=== PATIENT | female | born 1945 | race Caucasian/White ===

== ENCOUNTER → 2016-09-02 | Outpatient (CLI) | payer OTHER, MEDICARE ==
[2016-09-02 12:48] LABS: BASO % 0.7 %; BASO ABS # 0.05 K/uL (0-0.2); COMPLETE YES; EOS % 5.7 %; HEMATOCRIT 41.8 % (37-47); IG% 0.1 %; LYMPH % 34.2 %; MEAN CELL VOLUME 85.3 fL (80-100); MEAN CORPUSCULAR HEMOGLOBIN 28.4 pg (25-34); MEAN CORPUSCULAR HGB CONC 33.3 g/dl (32-36); MEAN PLATELET VOLUME 9.9 fL (7.4-10.4); MONO % 5.9 %; NEUT % 53.4 %; PLATELET COUNT 290 K/uL (130-400); WHITE BLOOD COUNT 7.31 K/uL (4.8-10.8)
[2016-09-02 13:36] LABS: ALT/SGPT 18 U/L (12-78); BLOOD UREA NITROGEN 19 mg/dl (7-18); BUN/CREATININE RATIO 38.8 (10-20); CALCIUM 9.4 mg/dl (8.5-10.1); CARBON DIOXIDE 31 mmol/L (21-32); CHLORIDE 104 mmol/L (98-107); CHOLESTEROL 224 mg/dl (0-200); CREATININE 0.48 mg/dl (0.60-1.20); GLUCOSE 90 mg/dl (70-99); POTASSIUM 3.6 mmol/L (3.5-5.1); SODIUM 140 mmol/L (136-145); TRIGLYCERIDES 122 mg/dl (0-150); VERY LOW DENSITY LIPOPROT CALC 24 mg/dl
[2016-09-02 13:45] LABS: ALB/GLOB RATIO 0.9 (0.9-2); ALKALINE PHOSPHATASE 130 U/L (45-117); AST/SGOT 17 U/L (15-37); CHOLESTEROL/HDL RATIO 4.4; HDL CHOLESTEROL 51 mg/dl; LDL CHOLESTEROL CALCULATED 149 mg/dl; TOTAL IRON BINDING CAPACITY 305 mcg/dl (250-450)
== END | disposition home or self-care (01) ==
LOC: C.LABPBG 08:42
PROVIDERS: ATTEND Internal Medicine
DX: I10 Essential (primary) hypertension (principal); J01.90 Acute sinusitis, unspecified

== ENCOUNTER → 2016-09-10 | Outpatient (CLI) | payer OTHER, MEDICARE ==
--- NOTE | 2016-09-10 11:37 | DIAGNOSTIC IMAGING REPORT ---
SOFT TISSUE ULTRASOUND OF THE RIGHT UPPER BACK CLINICAL HISTORY: Right shoulder mass. Possible lipoma COMPARISON STUDY: No previous studies for comparison. FINDINGS: No definite masses are visualized. There are 2 foci which are isoechoic to fat measuring 44 x 47 x 15 mm, and 41 x 45 x 12 mm. It is unclear whether these represent discrete lesions, or simply fat lobules. IMPRESSION: No definite masses are visualized ultrasonographically. Electronically signed by: Sukhwinder Oakes M.D. 09/10/2016 11:35 AM Dictated Date/Time: 09/10/2016 11:29 AM
== END | disposition home or self-care (01) ==
LOC: C.ULTR 11:05
PROVIDERS: ATTEND Internal Medicine
DX: D17.9 Benign lipomatous neoplasm, unspecified (principal)

== ENCOUNTER → 2017-01-30 | Outpatient (CLI) | payer OTHER, MEDICARE ==
--- NOTE | 2017-01-30 11:38 | DIAGNOSTIC IMAGING REPORT ---
KUB CLINICAL HISTORY: Left costovertebral angle tenderness with the urinary signs. Evaluate for stone. COMPARISON STUDY: CT of the abdomen and pelvis June 02, 2014. FINDINGS: Moderate levoscoliosis of the lumbar spine is noted. No urinary calculi are identified. Bowel gas pattern is normal. IMPRESSION: 1. No urinary calculi identified. 2. No bowel obstruction. Electronically signed by: Chaitanya Rutledge M.D. 01/30/2017 11:37 AM Dictated Date/Time: 01/30/2017 11:33 AM
== END | disposition home or self-care (01) ==
LOC: C.RAD1850 11:21
PROVIDERS: ATTEND Physician Assistant
DX: R39.9 Unspecified symptoms and signs involving the genitourinary system (principal)

== ENCOUNTER → 2017-01-30 | Outpatient (CLI) | payer OTHER, MEDICARE | END | disposition home or self-care (01) | LOC: C.LABSPEC 12:12 | PROVIDERS: ATTEND Physician Assistant | DX: R39.9 Unspecified symptoms and signs involving the genitourinary system (principal) ==

== ENCOUNTER → 2017-02-04 | Outpatient (CLI) | payer OTHER, MEDICARE ==
--- NOTE | 2017-02-04 10:47 | DIAGNOSTIC IMAGING REPORT ---
(RENAL)RETROPERITON COMP CLINICAL HISTORY: 71 years-old Female presenting with left renal calculi, urinary symptoms. TECHNIQUE: Real-time grayscale and limited color Doppler ultrasound imaging of the kidneys and bladder was performed. COMPARISON: CT from 06/02/2014. FINDINGS: Right kidney: Normal echogenicity. Right kidney measures 10.8 cm. No hydronephrosis. No convincing evidence of calculus or mass. Normal perfusion. Left kidney: Normal echogenicity. Left kidney measures 10.9 cm. No hydronephrosis. No convincing evidence of calculus or mass. Normal perfusion. Bladder: Incompletely distended, however, bilateral ureteral jets observed. Other: None. IMPRESSION: 1. Normal renal ultrasound. No obstruction. Electronically signed by: Walker Steiner M.D. 02/04/2017 10:45 AM Dictated Date/Time: 02/04/2017 10:44 AM
--- NOTE | 2017-02-04 10:50 | DIAGNOSTIC IMAGING REPORT ---
PELVIC COMPLETE NON OB CLINICAL HISTORY: 71 years-old Female presenting with urinary symptoms, concern for left renal calculi, uterine fibroids, postmenopausal, no abnormal bleeding or history of surgery. TECHNIQUE: Real-time grayscale and color and spectral Doppler ultrasound imaging of the pelvis was performed using a transabdominal probe. COMPARISON: CT from 06/02/2014. FINDINGS: The examination is limited by inability to obtain transvaginal imaging. Uterus: Poorly visualized. At least 2 hypoechoic masses noted measuring 6.2 x 5.9 x 5.7 cm and 3.8 x 3.7 x 2.6 cm along the left uterine body, possibly uterine fibroids. Anteverted. The uterus measures 5.0 x 6.8 x 5.1 cm. Endometrium not well evaluated. Right adnexa: Not visualized. Left adnexa: Not visualized. Other: No free fluid. IMPRESSION: Overall limited examination secondary to the inability to obtain transvaginal imaging. Suspected uterine fibroids. Electronically signed by: Walker Steiner M.D. 02/04/2017 10:48 AM Dictated Date/Time: 02/04/2017 10:45 AM
== END | disposition home or self-care (01) ==
LOC: C.ULTR 09:39
PROVIDERS: ATTEND Physician Assistant
DX: R39.9 Unspecified symptoms and signs involving the genitourinary system (principal); D25.9 Leiomyoma of uterus, unspecified

== ENCOUNTER → 2017-02-18 | Outpatient (CLI) | payer OTHER, MEDICARE ==
--- NOTE | 2017-02-18 15:08 | DIAGNOSTIC IMAGING REPORT ---
L-SPINE MIN 4 VIEWS ROUTINE CLINICAL HISTORY: Low back pain. COMPARISON: None FINDINGS: Moderate levoscoliosis of the lumbar spine is noted. Vertebral body heights are maintained. There is no acute fracture within the lumbar spine. No suspicious osseous lesion is present. There is mild multilevel disc space narrowing and osteophytosis with moderate multilevel facet arthrosis. IMPRESSION: 1. No lumbar spine fracture. 2. Moderate levoscoliosis of the lumbar spine. 3. Mild multilevel degenerative disc disease and moderate multilevel facet arthrosis of the lumbar spine. Electronically signed by: Chaitanya Rutledge M.D. 02/18/2017 3:06 PM Dictated Date/Time: 02/18/2017 3:05 PM
== END | disposition home or self-care (01) ==
LOC: C.RAD1850 14:35
PROVIDERS: ATTEND Internal Medicine
DX: M54.5 Low back pain (principal); M41.9 Scoliosis, unspecified

== ENCOUNTER → 2017-03-20 | Outpatient (CLI) | payer OTHER, MEDICARE ==
--- NOTE | 2017-03-20 11:45 | DIAGNOSTIC IMAGING REPORT ---
EXAMINATION: PELVIC ULTRASOUND CLINICAL HISTORY: D25.9 Uterus [id number] Pelvic pain in [id number] COMPARISON STUDY: 02/04/2017 FINDINGS: The examination was quite limited from a technical standpoint, secondary to shadowing from the patient's fibroids. The uterus was difficult to measure. The endometrial stripe was not visualized. There is a left-sided fibroid measuring 68 x 55 x 57 mm. The right ovary measured 24 x 19 x 19 mm. There is a 21 mm follicle.. The left ovary was not visualized There was no evidence of pathologic free pelvic fluid. IMPRESSION: 1. Very limited study from a technical standpoint. The uterus was difficult to visualize due to shadowing from the patient's fibroid. A 68 mm left-sided fibroid was visualized. The additional fibroids previously described were not visualized the current study. Electronically signed by: Sukhwinder Oakes M.D. 03/20/2017 11:44 AM Dictated Date/Time: 03/20/2017 11:28 AM
== END | disposition home or self-care (01) ==
LOC: C.ULTR 10:26
PROVIDERS: ATTEND Internal Medicine
DX: D25.9 Leiomyoma of uterus, unspecified (principal); R10.2 Pelvic and perineal pain

== ENCOUNTER → 2017-04-07 | Outpatient (CLI) | payer OTHER, MEDICARE ==
--- NOTE | 2017-04-07 16:56 | DIAGNOSTIC IMAGING REPORT ---
CHEST 2 VIEWS ROUTINE CLINICAL HISTORY: Preoperative evaluation. COMPARISON STUDY: No previous studies for comparison. FINDINGS: No pneumothorax or pleural effusion is present. There is no consolidation to suggest pneumonia. Pulmonary vascularity is normal. Mild cardiomegaly is noted. Incidental note is made of S-shaped scoliosis of the thoracolumbar spine. IMPRESSION: 1. No acute cardiopulmonary findings. 2. Mild cardiomegaly. Electronically signed by: Chaitanya Rutledge M.D. 04/07/2017 4:55 PM Dictated Date/Time: 04/07/2017 4:54 PM
[2017-04-07 17:58] LABS: BASO % 0.6 %; BASO ABS # 0.06 K/uL (0-0.2); COMPLETE YES; EOS % 5.4 %; HEMATOCRIT 42.8 % (37-47); IG% 0.1 %; LYMPH % 37.3 %; LYMPH ABS # 3.65 K/uL (1.2-3.4); MEAN CELL VOLUME 86.1 fL (80-100); MEAN CORPUSCULAR HGB CONC 33.6 g/dl (32-36); MONO % 6.3 %; NEUT % 50.3 %; PLATELET COUNT 290 K/uL (130-400); RED BLOOD COUNT 4.97 M/uL (4.2-5.4); WHITE BLOOD COUNT 9.79 K/uL (4.8-10.8)
[2017-04-07 18:05] LABS: INR 0.9 (0.9-1.1); PROTHROMBIN TIME (PATIENT) 9.8 SECONDS (9.0-12.0)
[2017-04-07 18:16] LABS: BLOOD UREA NITROGEN 15 mg/dl (7-18); BUN/CREATININE RATIO 32.1 (10-20); CALCIUM 9.6 mg/dl (8.5-10.1); CARBON DIOXIDE 29 mmol/L (21-32); CHLORIDE 104 mmol/L (98-107); CREATININE 0.47 mg/dl (0.60-1.20); GLUCOSE 78 mg/dl (70-99); POTASSIUM 3.7 mmol/L (3.5-5.1); SODIUM 139 mmol/L (136-145)
[2017-04-07 18:19] LABS: ALB/GLOB RATIO 0.9 (0.9-2); ALKALINE PHOSPHATASE 152 U/L (45-117); ALT/SGPT 19 U/L (12-78); AST/SGOT 15 U/L (15-37)
== END | disposition home or self-care (01) ==
LOC: C.RAD1850 16:25
PROVIDERS: ATTEND Internal Medicine
DX: Z01.818 Encounter for other preprocedural examination (principal); I51.7 Cardiomegaly

== ENCOUNTER → 2017-10-09 | Outpatient (CLI) | payer OTHER ==
[2017-10-09 13:47] LABS: BASO % 0.6 %; BASO ABS # 0.04 K/uL (0-0.2); EOS % 4.9 %; EOS ABS # 0.34 K/uL (0-0.5); IG# 0.01 K/uL (0.00-0.02); LYMPH % 36.8 %; LYMPH ABS # 2.53 K/uL (1.2-3.4); MEAN CELL VOLUME 87.3 fL (80-100); MEAN CORPUSCULAR HEMOGLOBIN 29.1 pg (25-34); MEAN CORPUSCULAR HGB CONC 33.3 g/dl (32-36); MEAN PLATELET VOLUME 9.8 fL (7.4-10.4); MONO % 7.3 %; NEUT % 50.3 %; NEUT ABS # 3.46 K/uL (1.4-6.5); PLATELET COUNT 293 K/uL (130-400); RED CELL DISTRIBUTION WIDTH CV 13.9 % (11.5-14.5); RED CELL DISTRIBUTION WIDTH SD 44.8 fL (36.4-46.3); WHITE BLOOD COUNT 6.88 K/uL (4.8-10.8)
[2017-10-09 14:17] LABS: BLOOD UREA NITROGEN 21 mg/dl (7-18); CALCIUM 9.2 mg/dl (8.5-10.1); CARBON DIOXIDE 29 mmol/L (21-32); CREATININE 0.53 mg/dl (0.60-1.20); GLUCOSE 91 mg/dl (70-99); POTASSIUM 3.5 mmol/L (3.5-5.1); SODIUM 139 mmol/L (136-145)
[2017-10-09 14:22] LABS: CHOLESTEROL 244 mg/dl (0-200); LDL CHOLESTEROL CALCULATED 170 mg/dl; TRANSFERRIN 269 mg/dl (200-360)
== END | disposition home or self-care (01) ==
LOC: C.LABPBG 08:26
PROVIDERS: ATTEND Internal Medicine
DX: G25.81 Restless legs syndrome (principal); I10 Essential (primary) hypertension; M79.604 Pain in right leg

== ENCOUNTER 2022-06-19 16:33 | Inpatient (IN) ==
--- NOTE | 2022-06-19 16:54 | Emergency Department Note ---
Impression & Plan ST elevation (STEMI) myocardial infarction ED Provider Note CHIEF COMPLAINT: Abnl EKG HISTORY OF PRESENT ILLNESS: This 76 yo female patient presents to the emergency department with complaints of chest tightness and exertional shortness of breath. Patient was in the cardiology office today and noted to have an abnormal EKG concerning for ST elevation AL. Patient states she has been told by her primary care physician in the past that she had a previous heart attack several years ago. Patient states over the last several weeks she has noticed increased difficulty with exercise and will develop chest tightness. It resolves over the course of about 10 minutes with rest. She denies any radiation of the discomfort, she denies getting diaphoretic or nauseated. Patient has had no recent fevers, cough. REVIEW OF SYSTEMS: A review of systems was performed with positives and pertine nt negatives listed in the history of present illness. 10 systems were reviewed and are otherwise negative. ALLERGIES: see below MEDICATIONS: see below PMH: see below SOCIAL HISTORY: see below DDx: Cardiac ischemia, aortic dissection, pulmonary embolism, pneumothorax, pneumonia, pericarditis, myocarditis, esophageal rupture, GERD, cholecystitis, pancreatitis, musculoskeletal, as well as other pathologies. PHYSICAL EXAM: Vital signs reviewed. Hypertensive General: Well-appearing 76 yo female, in some discomfort, anxious HEENT: No scleral icterus, PERRLA, neck supple. Atraumatic. Cardiovascular: Tachycardic and regular Pulmonary: Clear to auscultation bilaterally, normal work of breathing. Abdomen: Soft, nontender, nondistended, positive bowel sounds. Musculoskeletal: Atraumatic, no peripheral edema. Neurologic: Patient awake alert and oriented x 3, speech is clear Skin: Warm, dry, no rash EMERGENCY DEPARTMENT COURSE/MDM: This patient was evaluated nearly simultaneously with Dr. Ward of interventional cardiology at the bedside. A heart alert was called. The patient been sent from the cardiology office with concerns over an abnormal EKG. Patient was examined and a repeat EKG was performed. EKG findings seem to be worsening. Patient confirms symptoms consistent with exertional angina. She states she has some tightness and shortness of breath at this time. She was given 243 mg of aspirin as she had taken 1 baby aspirin earlier today. Patient was also given 1 mg of Ativan for her anxiety. She did receive sublingual nitroglycerin. We did discuss the need for cardiac catheterization. Dr. Ward was able to discuss the risks and benefits with her and her at the bedside. They agreed and proceeded. MONITORING: An order for cardiac monitoring was placed and the patient is noted to be in a sinus tachycardia 114 beats per minute. RADIOLOGY: See below EKG: Sinus tachycardia with PACs at 103 bpm. Left atrial enlargement. ST elevation noted in V1 and aVR with reciprocal change, ST depression laterally. Concerning for ST elevation AL. DISPOSITION: Admission Past Med/Surg History Medical History Arthritis Cervical disc disease Chronic rhinitis Dyslipidemia Hypertension Mood change On statin therapy Pain of left calf RLS (restless legs syndrome) Scoliosis Vitamin B12 deficiency Surgical History H/O: hysterectomy (2017) S/P appendectomy S/P dilatation and curettage S/P tubal ligation Family History Father Myocardial infarction Hypertension Mother Diabetes Cardiomegaly Kidney stone Aunt Osteoporosis Thyroid disease Sister Kidney stone Denies family history of Ovarian cancer Prostate cancer Breast cancer Colorectal cancer Social History Smoking Status: Former smoker Age Started Using Tobacco: 20; Age Quit Using Tobacco: 51; Cigarettes Per Day: 7 cigarettes daily; Second Hand Exposure: No; Hx Alcohol Use: No Hx Substance Use: No Preferred Language: Bengali Communication Ability: Effective Visual Impairment: No Limitations Hearing Ability: Normal Field Recorder Required: No Beliefs That Will Affect Care: None marital status: / Current Living Situation: Significant Other current occupational status: retired Feels Safe at Home: Yes caffeine: No Dental Care, Regularly: Yes Physical Activity Frequency: 1-2 Times per Week Physical Activity Frequency Comment: walking Seatbelt Use: always Sunscreen Use: Yes Allergies Allergies Allergy/AdvReac Type Severity Reaction Status Date / Time olmesartan [From Benicar] AdvReac Intermediate Dizziness Verified 06/19/22 17:07 enalapril AdvReac Unknown Unknown Verified 06/19/22 17:07 hydrochlorothiazide AdvReac Unknown Unknown Verified 06/19/22 17:07 Home Meds Home Medications Medication Instructions Recorded Confirmed aspirin 81 mg tablet,delayed 81 mg PO DAILY 03/01/22 06/19/22 release losartan 50 mg tablet 50 mg PO BID 06/19/22 06/19/22 Previous Rx's Medication Instructions Recorded rosuvastatin 10 mg tablet 10 mg PO DAILY #90 tabs 03/01/22 Results & Data (ED) Vital Signs Vital Signs - 24 hr 06/19/22 16:36 06/19/22 16:58 06/19/22 16:58 Temperature 36.7 C Temperature Source Temporal Artery Scan Pulse Rate 114 H Pulse Rate [Apical] 119 H Respiratory Rate 16 36 H Respiratory Effort / Characteristics Non-Labored Spontaneous Respiratory Depth Normal Respiratory Pattern Regular Blood Pressure 210/119 H Blood Pressure [Left Arm] 178/126 H Blood Pressure Mean 149 Blood Pressure Mean [Left Arm] 143 Blood Pressure Position Sitting Pulse Oximetry 99 99 Oxygen Delivery Method Room Air Room Air Room Air Sepsis Recent Fever Within 48 Hours No Sepsis New/Unexplained Change in Mental Status No Sepsis Action Taken by Nursing No Action Required 06/19/22 17:00 06/19/22 17:08 06/19/22 17:09 Temperature Temperature Source Pulse Rate Pulse Rate [Apical] 121 H 112 H Respiratory Rate 25 H 18 Respiratory Effort / Characteristics Respiratory Depth Respiratory Pattern Blood Pressure Blood Pressure [Left Arm] 197/123 H 180/109 H Blood Pressure Mean Blood Pressure Mean [Left Arm] 147 132 Blood Pressure Position Pulse Oximetry 99 Oxygen Delivery Method Room Air Room Air Sepsis Recent Fever Within 48 Hours Sepsis New/Unexplained Change in Mental Status Sepsis Action Taken by Nursing 06/19/22 17:13 Temperature Temperature Source Pulse Rate Pulse Rate [Apical] Respiratory Rate Respiratory Effort / Characteristics Respiratory Depth Respiratory Pattern Blood Pressure Blood Pressure [Left Arm] Blood Pressure Mean Blood Pressure Mean [Left Arm] Blood Pressure Position Pulse Oximetry Oxygen Delivery Method Room Air Sepsis Recent Fever Within 48 Hours Sepsis New/Unexplained Change in Mental Status Sepsis Action Taken by Skilled Nursing Medications Current Medication List: was personally reviewed by me Laboratory Data Attestation: I reviewed the patient's lab results. Result diagrams: 06/19/22 16:54 06/19/22 19:31 Lab Results 06/19/22 06/19/22 06/19/22 Range/Units 16:54 16:54 16:54 WBC 12.71 H (4.8-10.8) K/ul RBC 5.15 (3.93-5.22) M/uL Hgb 14.5 (12.0-16.0) g/dl Hct 44.2 (34.1-44.9) % MCV 85.8 (80.0-100.0) fL MCH 28.2 (25.0-34.0) pg MCHC 32.8 (32.0-36.0) g/dL RDW Std Deviation 42.8 (36.4-46.3) fL RDW Coeff of Fouzia 13.6 (11.5-14.5) % Plt Count 369 (130-400) K/uL MPV 10.7 (9.4-12.3) fL Immature Gran % (Auto) 0.2 % Neut % (Auto) 72.6 % Lymph % (Auto) 19.9 % Briscoe % (Auto) 6.2 % Eos % (Auto) 0.5 % Baso % (Auto) 0.6 % Neut # (Auto) 9.23 H (1.4-6.5) K/uL Lymph # (Auto) 2.53 (1.2-3.4) K/uL Briscoe # (Auto) 0.79 (0.24-0.82) K/uL Eos # (Auto) 0.06 (0-0.50) K/uL Baso # (Auto) 0.07 (0-0.2) K/uL Immature Gran # (Auto) 0.03 H (0.00-0.02) K/uL PT Cancelled INR Cancelled APTT Cancelled PTT Ratio Cancelled Activ Coag Time Kaolin (94-140) SECONDS Sodium TNP Potassium TNP Chloride 103 (98-107) mmol/L Carbon Dioxide 25 (21-32) mmol/L Anion Gap TNP BUN 18 (6-23) mg/dl Creatinine 0.53 L (0.6-1.2) mg/dl Est Cr Clr Drug Dosing 99.8 ml/min Est GFR ( Amer) 108.4 ml/min Est GFR (Non-Af Amer) 93.5 ml/min BUN/Creatinine Ratio 34.0 H (10-20) Glucose 117 H (70-99(Fasting)) mg/dl Calcium 10.0 (8.5-10.1) mg/dl Total Bilirubin 0.6 (0.2-1.0) mg/dl AST TNP ALT 18 (7-52) U/L Alkaline Phosphatase 123 H (34-104) U/L Troponin I High Sens 415.0 H* (0-14) pg/ml Total Protein 7.9 (6.0-8.3) gm/dl Albumin 4.3 (3.4-5.0) gm/dl Globulin 3.6 (2.5-4.0) gm/dl Albumin/Globulin Ratio 1.2 (0.9-2) SARS-CoV-2, RNA, NAAT (NEGATIVE) 06/19/22 06/19/22 06/19/22 Range/Units 17:02 17:40 17:58 WBC (4.8-10.8) K/ul RBC (3.93-5.22) M/uL Hgb (12.0-16.0) g/dl Hct (34.1-44.9) % MCV (80.0-100.0) fL MCH (25.0-34.0) pg MCHC (32.0-36.0) g/dL RDW Std Deviation (36.4-46.3) fL RDW Coeff of Fouzia (11.5-14.5) % Plt Count (130-400) K/uL MPV (9.4-12.3) fL Immature Gran % (Auto) % Neut % (Auto) % Lymph % (Auto) % Briscoe % (Auto) % Eos % (Auto) % Baso % (Auto) % Neut # (Auto) (1.4-6.5) K/uL Lymph # (Auto) (1.2-3.4) K/uL Briscoe # (Auto) (0.24-0.82) K/uL Eos # (Auto) (0-0.50) K/uL Baso # (Auto) (0-0.2) K/uL Immature Gran # (Auto) (0.00-0.02) K/uL PT INR APTT PTT Ratio Activ Coag Time Kaolin 329 H 257 H (94-140) SECONDS Sodium Potassium Chloride (98-107) mmol/L Carbon Dioxide (21-32) mmol/L Anion Gap BUN (6-23) mg/dl Creatinine (0.6-1.2) mg/dl Est Cr Clr Drug Dosing ml/min Est GFR ( Amer) ml/min Est GFR (Non-Af Amer) ml/min BUN/Creatinine Ratio (10-20) Glucose (70-99(Fasting)) mg/dl Calcium (8.5-10.1) mg/dl Total Bilirubin (0.2-1.0) mg/dl AST ALT (7-52) U/L Alkaline Phosphatase (34-104) U/L Troponin I High Sens (0-14) pg/ml Total Protein (6.0-8.3) gm/dl Albumin (3.4-5.0) gm/dl Globulin (2.5-4.0) gm/dl Albumin/Globulin Ratio (0.9-2) SARS-CoV-2, RNA, NAAT NEGATIVE (NEGATIVE) Administered Medications Famotidine (Famotidine 20 Mg Tab) 20 mg PO BID [facility] Stop: 07/19/22 20:59 Last Admin: 06/19/22 20:09 Dose: 20 mg Documented By: LORENA Sodium Chloride (Nss 1000ml) 1,000 mls @ 75 mls/hr IV .[id number] [facility] Stop: 07/19/22 18:44 Last Admin: 06/19/22 19:21 Dose: 75 mls/hr Documented By: LORENA Metoprolol Tartrate (Metoprolol Tartrate 25 Mg Tab) 25 mg PO BID [facility] Stop: 07/19/22 20:59 Last Admin: 06/19/22 20:08 Dose: 25 mg Documented By: LORENA Madrigal (Icu Protocol For Hyperglycemia) 1 each N/A ACHS LISET Stop: 06/21/22 20:59 Last Admin: 06/19/22 20:25 Dose: 1 each Documented By: LORENA Madrigal (Icu Protocol For Hyperglycemia) 1 each N/A ACHS LISET Stop: 06/21/22 20:59 Last Admin: 06/19/22 20:25 Dose: 1 each Documented By: LORENA Discontinued Medications Aspirin (Aspirin Chew 324 Mg) 243 mg PO NOW STA Stop: 06/19/22 16:58 Last Admin: 06/19/22 17:06 Dose: 243 mg Documented By: ED Aspirin (Aspirin 81 Mg Chew) Confirm Administered Dose 243 mg .ROUTE .STK-MED ONE Stop: 06/19/22 16:59 Last Admin: 06/19/22 17:06 Dose: Not Given Documented By: ED Fentanyl Citrate (Fentanyl Citrate 100 Mcg/2 Ml Vial) Confirm Administered Dose 100 mcg .ROUTE .STK-MED ONE Stop: 06/19/22 17:00 Last Increment: 06/19/22 18:35 Dose: 25 mcg Documented By: RL Heparin Sodium (Porcine) (Heparin (Porcine) 1000 Unit/Ml 10 Ml (Heat And Frost Insulator Helper Use Only)) Confirm Administered Dose 10,000 units .ROUTE .STK-MED ONE Stop: 06/19/22 17:00 Last Admin: 06/19/22 18:36 Dose: 8,000 units Documented By: RL Heparin Sodium (Porcine) (Heparin (Porcine) 1000 Unit/Ml 10 Ml (Heat And Frost Insulator Helper Use Only)) Confirm Administered Dose 10,000 units .ROUTE .STK-MED ONE Stop: 06/19/22 18:03 Last Admin: 06/19/22 19:13 Dose: Not Given Documented By: LORENA Heparin Sodium (Porcine) (Heparin (Porcine) 1000 Unit/Ml 10 Ml (Heat And Frost Insulator Helper Use Only)) Confirm Administered Dose 10,000 units .ROUTE .STK-MED ONE Stop: 06/19/22 18:31 Last Admin: 06/19/22 19:13 Dose: Not Given Documented By: LORENA Heparin Sodium/Sodium Chloride (Heparin In Nss Infusion 1000 Unit/500 Ml (2 U/Ml) Bag) Confirm Administered Dose 3,000 units IV .STK-MED ONE Stop: 06/19/22 17:00 Last Admin: 06/19/22 19:12 Dose: Not Given Documented By: LORENA Hydralazine HCl (Hydralazine Hcl 20 Mg/Ml Vial) Confirm Administered Dose 20 mg .ROUTE .STK-MED ONE Stop: 06/19/22 21:31 Last Admin: 06/19/22 21:36 Dose: Not Given Documented By: LORENA Lorazepam (Lorazepam 2 Mg/1 Ml Vial) 1 mg IV NOW STA Stop: 06/19/22 17:00 Last Admin: 06/19/22 17:06 Dose: 1 mg Documented By: ED Lorazepam (Lorazepam 2 Mg/1 Ml Vial) Confirm Administered Dose 2 mg .ROUTE .STK- MED ONE Stop: 06/19/22 17:01 Last Admin: 06/19/22 17:07 Dose: Not Given Documented By: ED Losartan Potassium (Losartan Potassium 50 Mg Tab) 50 mg PO ONCE ONE Stop: 06/19/22 21:14 Last Admin: 06/19/22 21:16 Dose: Not Given Documented By: LORENA Losartan Potassium (Losartan Potassium 25 Mg Tab) 25 mg PO ONCE ONE Stop: 06/19/22 21:31 Last Admin: 06/19/22 21:33 Dose: 25 mg Documented By: LORENA Midazolam HCl (Midazolam Hcl 1 Mg/Ml 2ml Vial) Confirm Administered Dose 2 mg .ROUTE .STK-MED ONE Stop: 06/19/22 17:00 Last Increment: 06/19/22 18:35 Dose: 1 mg Documented By: RL Nicardipine HCl (Nicardipine Hcl Inj 2.5 Mg/Ml 10 Ml Amp) Confirm Administered Dose 25 mg .ROUTE .STK-MED ONE Stop: 06/19/22 17:00 Last Admin: 06/19/22 19:13 Dose: Not Given Documented By: LORENA Nitroglycerin (Nitroglycerin Sl 0.4 Mg/Tab Tab) Confirm Administered Dose 0.4 mg .ROUTE .STK-MED ONE Stop: 06/19/22 16:59 Last Admin: 06/19/22 17:06 Dose: 0.4 mg Documented By: ED Nitroglycerin/Dextrose (Nitroglycerin/D5w 100mcg/Ml 20ml Syr) Confirm Administered Dose 2,000 mcg .ROUTE .STK-MED ONE Stop: 06/19/22 17:01 Last Admin: 06/19/22 19:13 Dose: Not Given Documented By: LORENA Ticagrelor (Ticagrelor 90 Mg Tab) Confirm Administered Dose 180 mg .ROUTE .STK- MED ONE Stop: 06/19/22 18:23 Last Admin: 06/19/22 18:36 Dose: 180 mg Documented By: RL Imaging Data Radiologist's Impression: Chest X-Ray 06/19/22 16:42 SINGLE VIEW CHEST CLINICAL HISTORY: Atypical chest pain FINDINGS: An AP, portable, upright chest radiograph is compared to study dated 04/07/2017. The heart is enlarged noting atherosclerotic calcification of the thoracic aorta. There is pulmonary vascular congestion with evidence of interstitial edema. Atelectasis seen at the lung bases. No large pleural effusion or pneumothorax is seen. The skeletal structures are osteopenic. The bony thorax is grossly intact. Degenerative change and mild scoliosis is noted in the thoracic spine. IMPRESSION: Cardiomegaly with evidence of congestive failure and mild pulmonary edema. ACT 112: Negative or not required by law. Electronically signed by: Cristobal Veliz M.D. 06/19/2022 5:24 PM Blood Pressure Blood Pressure Findings: Elevated blood pressure Blood Pressure Disposition: further management by hospitalist Discharge Plan Visit Data Chief Complaint: Arrhythmia/Palpitations Stated Complaint: REFERRED BY DOCTOR, HEART PALPITATIONS ED Provider: Rabia Murguia Discharge Problem: ST elevation (STEMI) myocardial infarction Patient Disposition: Admitted As Inpatient Discharge Instructions Interventions: ED Discharge Assessment Last Done: 06/19/22 17:13 : ST elevation (STEMI) myocardial infarction Qualifiers: Involved coronary artery: LAD coronary artery Qualified Code(s): I21.02 - ST elevation (STEMI) myocardial infarction involving left anterior descending coronary artery
[2022-06-19] MEDS ORDERED: ASPIRIN CHEW 324 MG PO STA (16:57)
[2022-06-19] MEDS ORDERED: NITROGLYCERIN SL 0.4 MG/TAB TAB ONE (16:58)
[2022-06-19] MEDS ORDERED: ASPIRIN 81 MG CHEW ONE (16:58)
[2022-06-19] MEDS ORDERED: LORazepam 2 MG/1 ML VIAL IV STA (16:59)
[2022-06-19] MEDS ORDERED: HEPARIN (PORCINE) 1000 UNIT/ML 10 ML (CATH LAB USE ONLY) ONE ×3 (16:59→18:30)
[2022-06-19] MEDS ORDERED: niCARdipine HCL INJ 2.5 MG/ML 10 ML AMP ONE (16:59)
[2022-06-19] MEDS ORDERED: MIDAZOLAM HCL 1 MG/ML 2ML VIAL ONE (16:59)
[2022-06-19] MEDS ORDERED: fentaNYL citrate 100 MCG/2 ML VIAL ONE (16:59)
[2022-06-19] MEDS ORDERED: NITROGLYCERIN/D5W 100MCG/ML 20ML SYR ONE (17:00)
[2022-06-19] MEDS ORDERED: LORazepam 2 MG/1 ML VIAL ONE (17:00)
[2022-06-19 17:14] LABS: Basophils # (auto) 0.07 K/uL (0-0.2); Basophils % (auto) 0.6 %; Eosinophils # (auto) 0.06 K/uL (0-0.50); Eosinophils % (auto) 0.5 %; Hematocrit (blood only) 44.2 % (34.1-44.9); Hemoglobin 14.5 g/dl (12.0-16.0); Immature Granulocytes # (auto) 0.03 K/uL (0.00-0.02); Immature Granulocytes % (auto) 0.2 %; Lymphocytes # (auto) 2.53 K/uL (1.2-3.4); Lymphocytes % (auto) 19.9 %; Mean Corpuscular Hemoglobin 28.2 pg (25.0-34.0); Mean Corpuscular Hgb Conc 32.8 g/dL (32.0-36.0); Mean Corpuscular Volume 85.8 fL (80.0-100.0); Mean Platelet Volume 10.7 fL (9.4-12.3); Monocytes # (auto) 0.79 K/uL (0.24-0.82); Monocytes % (auto) 6.2 %; Neutrophils # (auto) 9.23 K/uL (1.4-6.5); Neutrophils % (auto) 72.6 %; Platelet Count 369 K/uL (130-400); RDW Coefficient of Variation 13.6 % (11.5-14.5); RDW Standard Deviation 42.8 fL (36.4-46.3); Red Blood Count 5.15 M/uL (3.93-5.22); White Blood Count 12.71 K/ul (4.8-10.8)
--- NOTE | 2022-06-19 17:23 | History & Physical Report ---
Date of Service June 19, 2022 Assessment & Plan (1) CAD (coronary artery disease): Plan: Acute coronary syndrome with ST elevation seen in avr and V1 with st depression I,II,III avl and avf pt with aspirin loading heparin, nicardipine for hypertensive urgency on presentation Patient had 2 stents placed in LAD 1 in the RCA she is in the ICU for recovery. She will be on high intensity statin by increasing her rosuvastatin to 20 should be on Brilinta and aspirin. Her blood pressure be controlled with continuation of her ARB and likely addition of beta-nicolette per cardiology's discretion (2) Hyperglycemia: Plan: this is by the record glucose is reasonable and A1c 5.9 will not use insulin ss unless has recurrent high readings (3) Dyslipidemia: Plan: lipids in the past have been reasonable while on rosuvastatin, dose will be increased to high intensity (4) Hypertension: Plan: pt on losartan but has a arb allergy to omlesartan, apparently tolerating losartan well (5) RLS (restless legs syndrome): Plan: Patient currently on no treatment for this History of Present Illness Primary Care Provider: Neeru Schaffer MD Patient has been stuttering cardiac symptoms for some time as an outpatient presented to an outpatient cardiology office around 4 PM with complaints of palpitations and chest discomfort. EKG in the office was concerning for acute coronary syndrome. She was sent immediately to the emergency department patient presents as a heart alert with inferior lateral ST elevation reciprocal depression. Patient was at her cardiology office this morning with exertional chest pain and abnormal EKG during the office visit. She was subsequently referred to the emergency department where EKG confirms the concern for acute coronary syndrome and heart alert was called that the patient taken emergently to the [facility]. Where she had 2 LAD stents placed in RCA stent placed and likely will need to come back for additional stenting of her coronary artery disease. Patient has risk factors of tobacco abuse hypertension and dyslipidemia, hyperglycemia without a formal diagnosis of diabetes Patient was seen postprocedure in the ICU she is in stable condition she has a T band in her right wrist which is intact with good sensation distally she is not with any additional chest discomfort shortness of breath or palpitations at this time Allergies Allergy/AdvReac Type Severity Reaction Status Date / Time olmesartan [From Benicar] AdvReac Intermediate Dizziness Verified 06/19/22 17:07 enalapril AdvReac Unknown Unknown Verified 06/19/22 17:07 hydrochlorothiazide AdvReac Unknown Unknown Verified 06/19/22 17:07 Home Medications Medication Instructions Recorded Confirmed Type aspirin 81 mg tablet,delayed 81 mg PO DAILY 03/01/22 06/19/22 History release rosuvastatin 10 mg tablet 10 mg PO DAILY #90 tabs 03/01/22 06/19/22 Rx losartan 50 mg tablet 50 mg PO BID 06/19/22 06/19/22 History Past Med/Surg History Medical History (Updated 03/01/22 @ 14:08 by Darrell Bhat MD) Arthritis Cervical disc disease Chronic rhinitis Dyslipidemia Hypertension Mood change On statin therapy Pain of left calf RLS (restless legs syndrome) Scoliosis Vitamin B12 deficiency Surgical History H/O: hysterectomy (2016) S/P appendectomy S/P dilatation and curettage S/P tubal ligation Family History Father Myocardial infarction Hypertension Mother Diabetes Cardiomegaly Kidney stone Aunt Osteoporosis Thyroid disease Sister Kidney stone Denies family history of Ovarian cancer Prostate cancer Breast cancer Colorectal cancer Social History Smoking Status: Former smoker Age Started Using Tobacco: 20; Age Quit Using Tobacco: 51; Cigarettes Per Day: 7 cigarettes daily; Second Hand Exposure: No; Hx Alcohol Use: No Hx Substance Use: No Preferred Language: Polish Communication Ability: Effective Visual Impairment: No Limitations Hearing Ability: Normal Shipping 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 Required: No marital status: / Current Living Situation: Other current occupational status: retired Feels Safe at Home: Yes caffeine: No Dental Care, Regularly: Yes Physical Activity Frequency: 1-2 Times per Week Physical Activity Frequency Comment: walking Seatbelt Use: always Sunscreen Use: Yes Review of Systems Review of Systems: Mild distress and fatigue no headache, no visual changes no speech or swallowing issues Patient was having chest discomfort with pressure and palpitations no shortness of breath, cough or wheezes no abdominal pain, nausea or vomiting, diarrhea or constipation no dysuria, hematuria or frequency no focal joint pain or swelling no back pain, CVA tenderness or radicular pain no bruising, bleeding or rashes no focal signs of weakness or numbness or altered sensation no complaints of anxiety or depression.. Physical Exam Physical Exam: The patient appeared well nourished and normally developed. Vital signs as documented. Head exam is normocephalic atraumatic Neck is without JVD, thyromegaly, or carotid bruits. Lungs are clear to auscultation, no focal loss of breath sounds Cardiac exam, Rhythm is regular.. No murmurs, rubs or gallops. Abdominal exam reveals normal bowel sounds, soft non tender, no masses Extremities T band in place in the right wrist Neurologic exam is alert and oriented, no focal loss of strength or sensation Skin is without bruises or rashes Psychologically is without concerns for anxiety or depression.. Results & Data Results & Data ([facility]) Vital Signs (Past 12 Hours) Vital Signs Temp Pulse Pulse Resp BP BP Pulse Ox 06/19/22 17:13 06/19/22 17:09 06/19/22 17:08 112 H 18 180/109 H 06/19/22 17:00 121 H 25 H 197/123 H 99 06/19/22 16:58 119 H 36 H 178/126 H 99 06/19/22 16:58 06/19/22 16:36 98.1 F 114 H 16 210/119 H 99 O2 Del Method 06/19/22 17:13 Room Air 06/19/22 17:09 Room Air 06/19/22 17:08 Room Air 06/19/22 17:00 06/19/22 16:58 Room Air 06/19/22 16:58 Room Air 06/19/22 16:36 Room Air Diagnostic Findings Chest X-Ray 06/19/22 16:42 SINGLE VIEW CHEST CLINICAL HISTORY: Atypical chest pain FINDINGS: An AP, portable, upright chest radiograph is compared to study dated 04/07/2017. The heart is enlarged noting atherosclerotic calcification of the thoracic aorta. There is pulmonary vascular congestion with evidence of interstitial edema. Atelectasis seen at the lung bases. No large pleural effusion or pneumothorax is seen. The skeletal structures are osteopenic. The bony thorax is grossly intact. Degenerative change and mild scoliosis is noted in the thoracic spine. IMPRESSION: Cardiomegaly with evidence of congestive failure and mild pulmonary edema. ACT 112: Negative or not required by law. Electronically signed by: Cristobal Veliz M.D. 06/19/2022 5:24 PM ECG Additional Comments: ST elevation seen in avr and V1 with st depression I,II,III avl and avf PG Care Time/CCT Total # of Minutes Spent Total Time Spent with Patient: Total time spent is greater than 50% in coordination of care (as documented) at patient's floor/unit and/or counseling patient: Coding Level of Care Code 67080 Initial Inpt Care Lvl 3 Diagnoses CAD (coronary artery disease) I25.10 Associated angina: without angina Coronary Disease-Associated Artery/Lesion type: [place] artery [place] vs. transplanted heart: [place] heart Hyperglycemia R73.9 Dyslipidemia E78.5 Hypertension I10 Hypertension type: primary hypertension RLS (restless legs syndrome) G25.81 (1) CAD (coronary artery disease) Associated angina: without angina Coronary Disease-Associated Artery/Lesion type: [place] artery [place] vs. transplanted heart: [place] heart Qualified Code(s): I25.10 - Atherosclerotic heart disease of [place] coronary artery without angina pectoris (2) Hypertension Hypertension type: primary hypertension Qualified Code(s): I10 - Essential (primary) hypertension
--- NOTE | 2022-06-19 17:26 | XRay Report ---
SINGLE VIEW CHEST CLINICAL HISTORY: Atypical chest pain FINDINGS: An AP, portable, upright chest radiograph is compared to study dated 04/07/2017. The heart is enlarged noting atherosclerotic calcification of the thoracic aorta. There is pulmonary vascular c ongestion with evidence of interstitial edema. Atelectasis seen at the lung bases. No large pleural e ffusion or pneumothorax is seen. The skeletal structures are osteopenic. The bony thorax is grossly i ntact. Degenerative change and mild scoliosis is noted in the thoracic spine. IMPRESSION: Cardiomegaly with evidence of congestive failure and mild pulmonary edema. ACT 112: Negative or not required by law. Electronically signed by: Cristobal Veliz M.D. 06/19/2022 5:24 PM
[2022-06-19 17:47] LABS: Alanine Aminotransferase 18 U/L (7-52); Albumin Globulin Ratio 1.2 (0.9-2); Albumin Level 4.3 gm/dl (3.4-5.0); Alkaline Phosphatase 123 U/L (34-104); Bilirubin,Total 0.6 mg/dl (0.2-1.0); Blood Urea Nitrogen 18 mg/dl (6-23); Carbon Dioxide 25 mmol/L (21-32); Chloride 103 mmol/L (98-107); Creatinine Clr Calc Pharmacy 99.8 ml/min; Est GFR (African American) 108.4 ml/min; Est GFR (Non-African American) 93.5 ml/min; Globulin 3.6 gm/dl (2.5-4.0); Glucose 117 mg/dl (70-99(Fasting)); Total Protein 7.9 gm/dl (6.0-8.3)
[2022-06-19] MEDS ORDERED: TICAGRELOR 90 MG TAB ONE (18:22)
[2022-06-19] MEDS ORDERED: ONDANSETRON INJ 2 MG/ML 2 ML VIAL IV PRN (18:35)
[2022-06-19] MEDS ORDERED: ATROPINE SULFATE 0.1 MG/ML 10ML SYR IV PRN (18:35)
[2022-06-19] MEDS ORDERED: LORazepam 2 MG/1 ML VIAL IV PRN (18:52)
[2022-06-19] MEDS ORDERED: MoRPHine SULFATE 2 MG/ML CARP IV PRN (18:52)
[2022-06-19] MEDS ORDERED: MoRPHine SULFATE 4 MG/ML 1 ML CARP\\VIAL IV PRN (18:52)
--- NOTE | 2022-06-19 18:55 | Critical Care Consultation ---
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 She was noted have acute ECG changes and was brought to the EMD and taken directly to the cardiac cath suite. She received PCI and JUAN to the LAD and RCA. She is to the ICU without pressors or oxygen requirement. Neuro - Anxiety, pain CAM ICU - anxiety- prn ativan - acute pain from cath site- tylenol/morphine prn Cardiac - S/P Stents to cardiac arteries- LAD-2 RCA-2, Acute [place], CAD, HTN, HLD - s/p above without acute complications noted at this time, TR band is in place - DAPT therapy as recommended by cardiology- asa, and Brilinta - Continue to trend [id number] - ECG post procedure reviewed - Addition of BB as hemodynamics tolerate - Continue ARB - lipid panel in the morning- statin per cardiology- patient feels that she may be having some myalgias/musclee pains on the rosuvastatin - HGB A1c in am - ECHO pending in morning Respiratory - NO acute needs - previous smoker- quit ~25 years ago- on room air GI - No acute needs advance diet as tolerated RENAL/LYTES - NO acute needs - Electrolyte protocol - No acute needs ENDO - Elevated serum glucose without diagnosis of DM - HGBA1C in the morning - therapy as warranted - ICU protocol goal < 180 mg/dl HEME - No acute needs ID - No acute needs LINES/IV ACCESS - PIV Continue use of these lines DVT PROPHYLAXIS - SCDS, ASA, Brilinta, ambulation DISPO - ICU immediatley following stenting follow overnight hemodynamics, symptoms and ECG. I have personally spent 35 minutes of critical care time in the direct management of this patient. This is a life/limb threatening event. This includes time spent evaluating patient, direct bedside care, chart review, placing orders, interpretation of diagnostic studies, discussion with consultants, patient, and family members, as well as other required patient management activities. This time is exclusive of all separately billable procedures, and separate from and in addition to any other critical care service time. Thank you for allowing us to participate in the care of this patient. Please refer to my attending physician's documentation for any further recommendations. History of Present Illness Reason for Consultation: s/p cardiac catherization with stent placment Requesting Physician: Melisa Attending Physician: Bj Denise MD History of Present Illness 76 YOF with medical history of: HTN, HLD, elevated serum glucose without diagnosis of DM, and previous smoker, previous likely [place] with CAD. 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 Patient states that she was having palpitations and flutterings in her chest for the past 2 weeks or so and that was associated with dyspnea, but today she had onset of lateral left sided chest pain that radiated to her left shoulder and left arm, but was without any dyspnea, n/v/, diaphoresis. In the laboratory analyst suite the patient received PCI to LAD/RCA and JUAN- 2 overlapping to LAD and 1-JUAN to RCA - was loaded on Brilinta and aspirin. She was brought to the ICU post procedure with TR band in place. COVID test on admission is: NEGATIVE CODE: FULL Allergies Allergy/AdvReac Type Severity Reaction Status Date / Time olmesartan [From Benicar] AdvReac Intermediate Dizziness Verified 06/19/22 17:07 enalapril AdvReac Unknown Unknown Verified 06/19/22 17:07 hydrochlorothiazide AdvReac Unknown Unknown Verified 06/19/22 17:07 Home Medications Medication Instructions Recorded Confirmed Type aspirin 81 mg tablet,delayed 81 mg PO DAILY 03/01/22 06/19/22 History release rosuvastatin 10 mg tablet 10 mg PO DAILY #90 tabs 03/01/22 06/19/22 Rx losartan 50 mg tablet 50 mg PO BID 06/19/22 06/19/22 History Patient History Medical History Arthritis Cervical disc disease Chronic rhinitis Dyslipidemia Hypertension Mood change On statin therapy Pain of left calf RLS (restless legs syndrome) Scoliosis Vitamin B12 deficiency Surgical History H/O: hysterectomy (2017) S/P appendectomy S/P dilatation and curettage S/P tubal ligation Family History Father Myocardial infarction Hypertension Mother Diabetes Cardiomegaly Kidney stone Aunt Osteoporosis Thyroid disease Sister Kidney stone Denies family history of Ovarian cancer Prostate cancer Breast cancer Colorectal cancer Social History Smoking Status: Former smoker Age Started Using Tobacco: 20; Age Quit Using Tobacco: 51; Cigarettes Per Day: 7 cigarettes daily; Second Hand Exposure: No; Hx Alcohol Use: No Hx Substance Use: No Preferred Language: Armenian Communication Ability: Effective Visual Impairment: No Limitations Hearing Ability: Normal Nascar Driver Required: No marital status: / Current Living Situation: Other current occupational status: retired Feels Safe at Home: Yes caffeine: No Dental Care, Regularly: Yes Physical Activity Frequency: 1-2 Times per Week Physical Activity Frequency Comment: walking Seatbelt Use: always Sunscreen Use: Yes Review of Systems Review of Systems: REVIEW OF SYSTEMS: Constitutional: No fever, sweats or chills Eyes: No diplopia, no worsening or blurred vision ENT: normal hearing, no trouble swallowing Respiratory: No cough, sputum, dyspnea at rest or on exertion Cardiovascular: (+) palpitations/chest pain- resloved, Abdomen: No pain, nausea, vomiting, diarrhea or constipation Musculoskeletal: (+) leg myalgias, No joint pain, calf pain, swelling Neurologic: No weakness, numbness/tingling, or balance problems Psychiatric: (+) anxiety , No depression Physical Exam Physical Exam: PHYSICAL EXAM: General: awake, alert, no apparent distress Head: Normocephalic, atraumatic ENT: PERRLA, EOMI, no pharyngeal exudate, mucous membranes moist Neuro: AAO x 3, speech clear and appropriate, strength intact bilaterally 5/5, sensation intact and equal all extremities and dermatomes, no pronator drift Chest: equal rise and fall of the chest, no accessory muscle use, no heaves or thrills, Clear to auscultation, on room air, Cardiac: Regular rate and rhythm, telemetry reviewed- NSR, skin warm dry, cap refill <3 seconds, peripheral pulses +2 no JVD, no murmur, no edema GI: NABS x 4 quadrants, soft, nontender to palpation, no rebound, guarding or tenderness : Spontaneously voiding, no pain, no CVA tenderness, Psych: Normal mood and affect Skin: no rash or erythema Results & Data Results & Data ([facility]) Vital Signs (Past 12 Hours) Vital Signs Temp Pulse Pulse Resp BP BP Pulse Ox 06/19/22 17:13 06/19/22 17:09 06/19/22 17:08 112 H 18 180/109 H 06/19/22 17:00 121 H 25 H 197/123 H 99 06/19/22 16:58 119 H 36 H 178/126 H 99 06/19/22 16:58 06/19/22 16:36 36.7 C 114 H 16 210/119 H 99 O2 Del Method 06/19/22 17:13 Room Air 06/19/22 17:09 Room Air 06/19/22 17:08 Room Air 06/19/22 17:00 06/19/22 16:58 Room Air 06/19/22 16:58 Room Air 06/19/22 16:36 Room Air Laboratory Results Abnormal lab results 06/19/22 06/19/22 06/19/22 Range/Units 16:54 16:54 17:40 WBC 12.71 H (4.8-10.8) K/ul Neut # (Auto) 9.23 H (1.4-6.5) K/uL Immature Gran # (Auto) 0.03 H (0.00-0.02) K/uL Activ Coag Time Kaolin 329 H (94-140) SECONDS Creatinine 0.53 L (0.6-1.2) mg/dl BUN/Creatinine Ratio 34.0 H (10-20) Glucose 117 H (70-99(Fasting)) mg/dl Alkaline Phosphatase 123 H (34-104) U/L Troponin I High Sens 415.0 H* (0-14) pg/ml 06/19/22 06/19/22 Range/Units 17:58 18:25 WBC (4.8-10.8) K/ul Neut # (Auto) (1.4-6.5) K/uL Immature Gran # (Auto) (0.00-0.02) K/uL Activ Coag Time Kaolin 257 H 245 H (94-140) SECONDS Creatinine (0.6-1.2) mg/dl BUN/Creatinine Ratio (10-20) Glucose (70-99(Fasting)) mg/dl Alkaline Phosphatase (34-104) U/L Troponin I High Sens (0-14) pg/ml Diagnostic Findings Chest X-Ray 06/19/22 16:42 SINGLE VIEW CHEST CLINICAL HISTORY: Atypical chest pain FINDINGS: An AP, portable, upright chest radiograph is compared to study dated 04/07/2017. The heart is enlarged noting atherosclerotic calcification of the thoracic aorta. There is pulmonary vascular congestion with evidence of interstitial edema. Atelectasis seen at the lung bases. No large pleural effusion or pneumothorax is seen. The skeletal structures are osteopenic. The bony thorax is grossly intact. Degenerative change and mild scoliosis is noted in the thoracic spine. IMPRESSION: Cardiomegaly with evidence of congestive failure and mild pulmonary edema. ACT 112: Negative or not required by law. Electronically signed by: Cristobal Veliz M.D. 06/19/2022 5:24 PM Medications Administered Home Medications aspirin 81 mg tablet,delayed release 81 mg PO DAILY 03/01/22 [History Confirmed 06/19/22] rosuvastatin 10 mg tablet 10 mg PO DAILY #90 tabs 03/01/22 [Rx Confirmed 06/19/22] losartan 50 mg tablet 50 mg PO BID 06/19/22 [History Confirmed 06/19/22] Active Medications Aspirin (Aspirin 81 Mg Ectab) 81 mg PO DAILY [facility] Stop: 07/20/22 08:59 Atropine Sulfate (Atropine Sulfate 0.1 Mg/Ml 10ml Syr) 0.5 mg IV UD PRN PRN Reason: bradycardia/hypotension Stop: 07/19/22 18:34 Famotidine (Famotidine 20 Mg Tab) 20 mg PO BID [facility] Stop: 07/19/22 20:59 Sodium Chloride (Nss 1000ml) 1,000 mls @ 75 mls/hr IV .[id number] [facility] Stop: 07/19/22 18:44 Last Admin: 06/19/22 19:21 Dose: 75 mls/hr Lorazepam (Lorazepam 2 Mg/1 Ml Vial) 0.5 mg IV Q6H PRN PRN Reason: Anxiety/Agitation Stop: 07/19/22 18:51 Metoprolol Tartrate (Metoprolol Tartrate 25 Mg Tab) 25 mg PO BID [facility] Stop: 07/19/22 20:59 Miscellaneous (Icu Protocol For Hyperglycemia) 1 each N/A ACHS [facility] Stop: 06/21/22 20:59 Miscellaneous (Icu Electrolyte Replacement Protocol) 1 each N/A BID@06,18 [facility]; Protocol Stop: 06/27/22 05:59 Miscellaneous ([facility] Protocol For Hyperglycemia) 1 each N/A ACHS [facility] Stop: 06/21/22 20:59 Morphine Sulfate (Morphine Sulfate 2 Mg/Ml Carp) 2 mg IV Q4 PRN PRN Reason: Moderate Pain Stop: 07/03/22 18:51 Morphine Sulfate (Morphine Sulfate 4 Mg/Ml 1 Ml Carp\Vial) 4 mg IV Q4 PRN PRN Reason: Severe Pain Stop: 07/03/22 18:51 Ondansetron HCl (Ondansetron Inj 2 Mg/Ml 2 Ml Vial) 4 mg IV Q6H PRN PRN Reason: Nausea And Vomiting Stop: 07/19/22 18:34 Rosuvastatin Calcium (Rosuvastatin Calcium 20 Mg Tab) 20 mg PO DAILY [facility] Stop: 07/20/22 08:59 Ticagrelor (Ticagrelor 90 Mg Tab) 90 mg PO BID [facility] Stop: 07/20/22 08:59 ECG Additional Comments: Sinus rhythm with Premature atrial complexes Left ventricular hypertrophy with repolarization abnormality Cannot rule out Septal infarct , age undetermined Abnormal ECG Coding Level of Care Code Critical Care 1st 30-74 mins Diagnoses Acute [place] I21.9 CAD (coronary artery disease) I25.10 Coronary Disease-Associated Artery/Lesion type: [place] artery [place] vs. transplanted heart: [place] heart Associated angina: without angina S/P coronary artery stent placement Z95.5 Hyperglycemia R73.9 Dyslipidemia E78.5 Hypertension I10 Hypertension type: primary hypertension (1) CAD (coronary artery disease) Coronary Disease-Associated Artery/Lesion type: [place] artery [place] vs. transplanted heart: [place] heart Associated angina: without angina Qualified Code(s): I25.10 - Atherosclerotic heart disease of [place] coronary artery without angina pectoris (2) Hypertension Hypertension type: primary hypertension Qualified Code(s): I10 - Essential (primary) hypertension
--- NOTE | 2022-06-19 18:56 | Post Operative Brief Note ---
Cardiology Brief Post Op Date of Surgery June 19, 2022 Pre & Post Diagnosis Operation Date: 06/19/22 17:00 <No data on this case meets the specified criteria> Procedure Selective right and left coronary angiography PCI of the proximal and mid LAD with 2 overlapping drug-eluting stents PCI of proximal RCA with 1 drug-eluting stent Cigar Head Piercer Néstor Ward MD, PhD Recordist Chief Fiona Estimated Blood Loss 10 Findings Consistent with Post-Op Diagnosis (Severe CAD) Left main: Mild disease LAD: Extensive proximal to mid disease up to 90% stenosis. LCx: Proximal OM 80% stenosis borderline size vessel for PCI RCA: Proximal 95% stenosis large caliber and dominant vessel. PCI of proximal and mid LAD. 0% residual stenosis. PCI of proximal RCA. 0% residual stenosis Residual stenosis in the circumflex "Jailed" ostial diagonal lesion with PARISH-3 flow PARISH-3 flow and no evidence of dissection or perforation in RCA or LAD Recommendations: 1. Dual antiplatelet therapy with aspirin 81 mg daily and Brilinta 90 mg p.o. twice daily. 2. Guideline directed medical therapy for secondary prevention of coronary disease to include; high intensity statin therapy, beta-nicolette, and angiotensin receptor nicolette. 3. Echocardiogram to evaluate LVEF. 4. ICU admission 24 hours as per [facility] recommendations 5. Likely outpatient elective PCI for residual circumflex disease in the near future. 6. Anticipate 48 hours admission assuming no complications Complications None Overlapping Procedure I was present for: the critical portions of procedure. [facility] Cardiac Procedure Charge Indication for Procedure Indication for procedure: ST elevation SC
[2022-06-19] MEDS ORDERED: ATORVASTATIN 40 MG TAB PO SCH (19:00)
[2022-06-19] MEDS: SODIUM CHLORIDE 0.9% 1000ML 1,000 ML IV SCH (19:21)
[2022-06-19] MEDS ORDERED: ACETAMINOPHEN 325 MG TAB PO PRN (19:42)
[2022-06-19] MEDS: METOPROLOL TARTRATE 25 MG TAB PO SCH (20:08)
[2022-06-19] MEDS: FAMOTIDINE 20 MG TAB PO SCH (20:09)
[2022-06-19 20:16] LABS: BUN Creatinine Ratio 30.6 (10-20); Calcium 9.3 mg/dl (8.5-10.1); Creatinine Clr Calc Pharmacy 107.9 ml/min; Est GFR (African American) 111.2 ml/min; Potassium 3.4 mmol/L (3.5-5.1)
[2022-06-19 20:22] LABS: INR 1.1 (0.9-1.1); Partial Thromboplastin Ratio > 5.1; Prothrombin Time 11.7 Seconds (9.0-12.0)
[2022-06-19] MEDS: ICU Protocol for HYPERglycemia SCH (20:25)
[2022-06-19 20:59] LABS: Partial Thromboplastin Time > 139.0 Seconds (21.0-31.0)
[2022-06-19] MEDS ORDERED: ICU Protocol for HYPERglycemia SCH (21:00)
[2022-06-19] MEDS ORDERED: LOSARTAN POTASSIUM 50 MG TAB PO ONE (21:13)
[2022-06-19] MEDS ORDERED: hydrALAZINE HCL 20 MG/ML VIAL IV PRN (21:27)
[2022-06-19] MEDS ORDERED: LOSARTAN POTASSIUM 25 MG TAB PO ONE (21:30)
[2022-06-19] MEDS ORDERED: hydrALAZINE HCL 20 MG/ML VIAL ONE (21:30)
[2022-06-20] MEDS: SODIUM CHLORIDE 0.9% 1000ML 1,000 ML IV SCH (00:56)
[2022-06-20 03:00] LABS: Basophils # (auto) 0.02 K/uL (0-0.2); Basophils % (auto) 0.2 %; Eosinophils # (auto) 0.02 K/uL (0-0.50); Eosinophils % (auto) 0.2 %; Hematocrit (blood only) 37.8 % (34.1-44.9); Hemoglobin 12.6 g/dl (12.0-16.0); Immature Granulocytes # (auto) 0.03 K/uL (0.00-0.02); Immature Granulocytes % (auto) 0.3 %; Lymphocytes # (auto) 1.26 K/uL (1.2-3.4); Mean Corpuscular Hemoglobin 28.4 pg (25.0-34.0); Mean Corpuscular Hgb Conc 33.3 g/dL (32.0-36.0); Mean Corpuscular Volume 85.1 fL (80.0-100.0); Mean Platelet Volume 10.1 fL (9.4-12.3); Monocytes # (auto) 0.68 K/uL (0.24-0.82); Neutrophils # (auto) 7.67 K/uL (1.4-6.5); Neutrophils % (auto) 79.3 %; Platelet Count 260 K/uL (130-400); RDW Coefficient of Variation 13.5 % (11.5-14.5); RDW Standard Deviation 41.9 fL (36.4-46.3); Red Blood Count 4.44 M/uL (3.93-5.22); White Blood Count 9.68 K/ul (4.8-10.8)
[2022-06-20 03:24] LABS: BUN Creatinine Ratio 31.8 (10-20); Calcium 8.7 mg/dl (8.5-10.1); Creatinine Clr Calc Pharmacy 120.2 ml/min; Est GFR (African American) 115.3 ml/min; Est GFR (Non-African American) 99.4 ml/min; Phosphorus 3.3 mg/dl (2.5-4.9); Potassium 3.2 mmol/L (3.5-5.1)
[2022-06-20] MEDS: POTASSIUM CHLORIDE CRTAB 20 MEQ TABCR PO SCH ×2 (04:00→07:40)
[2022-06-20] MEDS: MAGNESIUM OXIDE 400 MG TAB PO SCH ×2 (04:00→07:41)
[2022-06-20] MEDS ORDERED: ICU ELECTROLYTE REPLACEMENT PROTOCOL SCH (06:00)
[2022-06-20] MEDS: ASPIRIN 81 MG ECTAB PO SCH (07:41)
[2022-06-20] MEDS: FAMOTIDINE 20 MG TAB PO SCH ×2 (07:41→21:29)
[2022-06-20] MEDS: LOSARTAN POTASSIUM 25 MG TAB PO SCH ×2 (07:42→13:02)
[2022-06-20] MEDS: METOPROLOL TARTRATE 25 MG TAB PO SCH (07:42)
[2022-06-20] MEDS: ROSUVASTATIN CALCIUM 20 MG TAB PO SCH (07:42)
[2022-06-20] MEDS: ICU Protocol for HYPERglycemia SCH ×3 (08:18→17:00)
[2022-06-20] MEDS ORDERED: ASPIRIN 81 MG ECTAB PO SCH (09:00)
--- NOTE | 2022-06-20 09:07 | Critical Care Progress Note ---
Date of Service June 20, 2022 Assessment & Plan (1) Acute [place]: (2) CAD (coronary artery disease): (3) S/P coronary artery stent placement: (4) Hyperglycemia: (5) Dyslipidemia: (6) Hypertension: Plan Reason Critically Ill: s/p PCI and JUAN to the LAD and RCA. Neuro - Anxiety, pain CAM ICU - anxiety- prn ativan - acute pain from cath site- tylenol/morphine prn Cardiac - S/P Stents to cardiac arteries- LAD-2 RCA-2, Acute [place], CAD, HTN, HLD - DAPT therapy as recommended by cardiology- asa, and Brilinta -Currently on beta-nicolette - Continue ARB Respiratory - NO acute needs - previous smoker- quit ~25 years ago- on room air GI - No acute needs Tolerating diet RENAL/LYTES - NO acute needs - Electrolyte protocol - No acute needs ENDO - Elevated serum glucose without diagnosis of DM - HGBA1C mildly elevated follow-up with PCP HEME - No acute needs ID - No acute needs LINES/IV ACCESS - PIV Continue use of these lines DVT PROPHYLAXIS - SCDS, ASA, Brilinta, ambulation DISPO -stable for downgrade out of ICU Admission and Anticipated Discharge Date Admission Date: June 19, 2022 Subjective No overnight events Results & Data Results & Data ([facility]) Vital Signs (Past 12 Hours) Vital Signs Temp Pulse Resp BP Pulse Ox 06/20/22 01:10 77 24 94 06/20/22 01:00 76 28 H 94 06/20/22 01:00 135/64 06/20/22 00:50 80 23 93 06/20/22 00:46 78 23 93 06/20/22 00:46 123/70 06/20/22 00:40 79 19 96 06/20/22 00:30 82 20 96 06/20/22 00:30 166/70 H 06/20/22 00:20 80 23 94 06/20/22 00:16 74 23 93 06/20/22 00:16 133/76 06/20/22 00:10 84 20 93 06/20/22 00:00 84 20 94 06/20/22 00:00 131/70 06/19/22 23:50 90 19 96 06/19/22 23:46 87 26 H 96 06/19/22 23:46 128/68 06/19/22 23:40 82 22 96 06/19/22 23:30 77 20 97 06/19/22 23:30 140/73 06/19/22 23:20 83 21 95 06/19/22 23:16 167/82 H 06/19/22 23:16 86 23 97 06/19/22 23:10 84 19 96 06/19/22 23:01 111/64 06/19/22 23:01 84 18 96 06/19/22 23:00 79 17 98 06/19/22 23:32 82 06/19/22 22:54 36.6 C 06/19/22 22:50 76 23 97 06/19/22 22:45 144/67 H 06/19/22 22:45 78 20 95 06/19/22 22:45 144/67 H 06/19/22 22:40 78 20 97 06/19/22 22:30 79 22 96 06/19/22 22:30 123/66 06/19/22 22:20 79 23 95 06/19/22 22:15 75 19 96 06/19/22 22:15 132/74 06/19/22 22:10 74 19 97 06/19/22 22:00 81 24 97 06/19/22 22:00 129/92 06/19/22 21:50 78 20 96 06/19/22 21:45 78 27 H 96 06/19/22 21:45 135/84 06/19/22 21:40 77 20 95 06/19/22 21:30 81 21 96 06/19/22 21:30 151/78 H 06/19/22 21:20 83 26 H 97 06/19/22 21:15 185/73 H 06/19/22 21:15 85 26 H 94 06/19/22 21:10 84 18 96 Critical Care Results & Data Vital Signs (Past 12 Hours) Vital Signs Temp Pulse Resp BP Pulse Ox 06/20/22 01:10 77 24 94 06/20/22 01:00 76 28 H 94 06/20/22 01:00 135/64 06/20/22 00:50 80 23 93 06/20/22 00:46 78 23 93 06/20/22 00:46 123/70 06/20/22 00:40 79 19 96 06/20/22 00:30 82 20 96 06/20/22 00:30 166/70 H 06/20/22 00:20 80 23 94 06/20/22 00:16 74 23 93 06/20/22 00:16 133/76 06/20/22 00:10 84 20 93 06/20/22 00:00 84 20 94 06/20/22 00:00 131/70 06/19/22 23:50 90 19 96 06/19/22 23:46 87 26 H 96 06/19/22 23:46 128/68 06/19/22 23:40 82 22 96 06/19/22 23:30 77 20 97 06/19/22 23:30 140/73 06/19/22 23:20 83 21 95 06/19/22 23:16 167/82 H 06/19/22 23:16 86 23 97 06/19/22 23:10 84 19 96 06/19/22 23:01 111/64 06/19/22 23:01 84 18 96 06/19/22 23:00 79 17 98 06/19/22 23:32 82 06/19/22 22:54 36.6 C 06/19/22 22:50 76 23 97 06/19/22 22:45 144/67 H 06/19/22 22:45 78 20 95 06/19/22 22:45 144/67 H 06/19/22 22:40 78 20 97 06/19/22 22:30 79 22 96 06/19/22 22:30 123/66 06/19/22 22:20 79 23 95 06/19/22 22:15 75 19 96 06/19/22 22:15 132/74 06/19/22 22:10 74 19 97 06/19/22 22:00 81 24 97 06/19/22 22:00 129/92 06/19/22 21:50 78 20 96 06/19/22 21:45 78 27 H 96 06/19/22 21:45 135/84 06/19/22 21:40 77 20 95 06/19/22 21:30 81 21 96 06/19/22 21:30 151/78 H 06/19/22 21:20 83 26 H 97 06/19/22 21:15 185/73 H 06/19/22 21:15 85 26 H 94 06/19/22 21:10 84 18 96 Lab & Micro Results (Past 24 Hours) RBC 4.44 M/uL (3.93-5.22) 06/20/22 WBC 9.68 K/ul (4.8-10.8) 06/20/22 Hgb 12.6 g/dl (12.0-16.0) 06/20/22 Hct 37.8 % (34.1-44.9) 06/20/22 MCV 85.1 fL (80.0-100.0) 06/20/22 MCH 28.4 pg (25.0-34.0) 06/20/22 MCHC 33.3 g/dL (32.0-36.0) 06/20/22 RDW Standard Deviation 41.9 fL (36.4-46.3) 06/20/22 RDW Coefficient of Variation 13.5 % (11.5-14.5) 06/20/22 Plt Count 260 K/uL (130-400) 06/20/22 MPV 10.1 fL (9.4-12.3) 06/20/22 Neutrophils (%) (Auto) 79.3 % 06/20/22 Lymphocytes (%) (Auto) 13.0 % 06/20/22 Monocytes # (Auto) 0.68 K/uL (0.24-0.82) 06/20/22 Eosinophils # (Auto) 0.02 K/uL (0-0.50) 06/20/22 Immature Granulocyte % (Auto) 0.3 % 06/20/22 Neutrophils # (Auto) 7.67 K/uL (1.4-6.5) H 06/20/22 Lymphocytes # (Auto) 1.26 K/uL (1.2-3.4) 06/20/22 Monocytes # (Auto) 0.68 K/uL (0.24-0.82) 06/20/22 Eosinophils # (Auto) 0.02 K/uL (0-0.50) 06/20/22 Basophils # (Auto) 0.02 K/uL (0-0.2) 06/20/22 Immature Granulocyte # (Auto) 0.03 K/uL (0.00-0.02) H 06/20 Na 140 mmol/L (136-145) 06/20/22 K 3.2 mmol/L (3.5-5.1) L 06/20/22 Cl 107 mmol/L (98-107) 06/20/22 CO2 27 mmol/L (21-32) 06/20/22 Anion Gap 6 (3-11) 06/20/22 BUN 14 mg/dl (6-23) 06/20/22 Creatinine 0.44 mg/dl (0.6-1.2) L 06/20/22 Estimated GFR ( Amer) 115.3 ml/min 06/20/22 Estimated GFR (Non-Af Amer) 99.4 ml/min 06/20/22 BUN/Creatinine Ratio 31.8 (10-20) H 06/20/22 Glu 114 mg/dl (70-99(Fasting)) H 06/20/22 Ca 8.7 mg/dl (8.5-10.1) 06/20/22 Phosphorus Level 3.3 mg/dl (2.5-4.9) 06/20/22 Mg 2.0 mg/dl (1.7-2.4) 06/20/22 02:47 Calcium Level 8.7 mg/dl (8.5-10.1) 06/20/22 02:47 Prothromb Time International Ratio 1.1 (0.9-1.1) 06/19/22 19:3 0 Diagnostic Findings (Past 24 Hours) Chest X-Ray 06/19/22 16:42 SINGLE VIEW CHEST CLINICAL HISTORY: Atypical chest pain FINDINGS: An AP, portable, upright chest radiograph is compared to study dated 04/07/2017. The heart is enlarged noting atherosclerotic calcification of the thoracic aorta. There is pulmonary vascular congestion with evidence of interstitial edema. Atelectasis seen at the lung bases. No large pleural effusion or pneumothorax is seen. The skeletal structures are osteopenic. The bony thorax is grossly intact. Degenerative change and mild scoliosis is noted in the thoracic spine. IMPRESSION: Cardiomegaly with evidence of congestive failure and mild pulmonary edema. ACT 112: Negative or not required by law. Electronically signed by: Cristobal Veliz M.D. 06/19/2022 5:24 PM I & O Totals 24 Hours 06/19/22 06/20/22 06/21/22 06:59 06:59 06:59 Intake Total 418.75 / 418.75 Output Total 1300 / 1300 Balance -881.25 / -881.25 Cumulative 06/19/22 16:33 thru 06/20/22 06:00 Intake Total 418.75 Output Total 1300 Balance -881.25 RT Ventilator Mngmt (Last Documented) Ventilator Ordered Settings Respiratory Rate 24 06/20/22 01:10 Ventilator - PT Measurements Respiratory Rate 24 Coding Level of Care Code 50051 Subseq Hosp Care Lvl 1 Diagnoses Acute WA I21.9 CAD (coronary artery disease) I25.10 Associated angina: without angina Coronary Disease-Associated Artery/Lesion type: andreafski artery Stebbins vs. transplanted heart: andreafski heart S/P coronary artery stent placement Z95.5 Hyperglycemia R73.9 Dyslipidemia E78.5 Hypertension I10 Hypertension type: primary hypertension (1) CAD (coronary artery disease) Associated angina: without angina Coronary Disease-Associated Artery/Lesion type: andreafski artery Stebbins vs. transplanted heart: andreafski heart Qualified Code(s): I25.10 - Atherosclerotic heart disease of andreafski coronary artery without angina pectoris (2) Hypertension Hypertension type: primary hypertension Qualified Code(s): I10 - Essential (primary) hypertension
[2022-06-20] MEDS: TICAGRELOR 90 MG TAB PO SCH ×2 (09:13→21:29)
--- NOTE | 2022-06-20 13:09 | XCELERA ---
[id number]
--- NOTE | 2022-06-20 14:45 | Cardiac Catheterization ---
ACC Data: [employer] Executive Cardiac Status Clinical evaluation leading to the procedure CAD Presenation: STEMI Anginal Classification: CCS IV Heart Failure: No Cardiogenic Shock within 24 Hours: No Cardiac Arrest within 24 Hours: No Imaging Studies Past 6 Months: No Stress Studies Past 6 Months: No STEMI OR Non-STEMI Symptom Onset Date: 06/19/22 Symptom Onset Time: 08:00 Thrombolytics: No Coronary Anatomy Left Main (% Stenosis): Normal LAD (% Stenosis): Proximal (99%) and Mid (90%) D1 (% Stenosis): Ostial (50 to 70%) and Proximal (95%) Circumflex (% Stenosis): Normal OM1 (% Stenosis): Proximal (90%) RCA (% Stenosis): Proximal (99%) R PDA (% Stenosis): Normal (Mild) R PL1 (% Stenosis): Normal (Mild) Diagnostic Physicians Name: Néstor Ward MD, PhD Closure Device Percutaneous Entry Location: Radial Closure Device: Radial Band Recommendations: Medical Therapy and/or Counseling and PCI without planned CABG PCI Indication: PCI for STEMI - Stable First Noted: First EKG Lesion Segment Name: Proximal and mid LAD Culprit Artery: Yes Stenosis Prior to Rx (%): 99 Chronic Total Occlusion: No Pre-Procedure PARISH Flow: 2 Previously Treated Lesion: No Lesion Complexity: High/C Lesion Length (mm): 20 Thrombus Present: Yes Bifurcation Lesion: Yes Guidewire Across Lesion: Yes Lesion #2 Segment Name: Proximal RCA Culprit Artery: No Stenosis Prior to Rx (%): 99% Chronic Total Occlusion: No Pre-Procedure PARISH Flow: 3 Previously Treated Lesion: No Lesion Complexity: Non-High/Non-C Lesion Length (mm): 12 Thrombus Present: No Bifurcation Lesion: No Guidewire Across Lesion: Yes Intraprocedure Events Significant Disection: No Perforation: No Cardiac Cath Procedure Full Procedure Date June 19, 2022 Pre-Procedure Diagnosis Pre-Procedure Diagnosis: STEMI AUC Score AUC Score: 09 Post-Procedure Diagnosis Post-Procedure Diagnosis: Severe CAD Procedure(s) Performed Procedure(s) Performed: Coronary Angiography and Drug Eluting Stent Fibreglass Gun Hand Néstor Ward MD, PhD Cnc Lathe Machinist(s) Clarice Ly Estimated Blood Loss Estimated Blood Loss: 10 ml Medication(s) Medication(s): Fentanyl, Heparin, Lidocaine 1%, Nicardipine, Nitroglycerin and Versed Summary of Findings Brief description: Patient was brought to the cardiac catheterization suite where she was shaved and prepped in a sterile fashion. Sedated using IV Versed and fentanyl. Soft tissues of the right wrist were anesthetized using 2 mL of 1% Xylocaine. The right radial artery was accessed using a modified Seldinger technique and a 6 Maltese radial artery glide sheath was placed. Patient was provided anticoagulation with IV heparin and antispasmodics including nicardipine and nitroglycerin. All catheters were advanced and exchanged over a 0.035 J-tip wire. Left coronary angiography was performed in orthogonal views with a 6 Maltese EBU 3.0 guide catheter. We proceeded immediately with PCI. A BMW versa guidewire was advanced through the guide catheter and positioned distally in the LAD. Severe stenosis in the proximal and mid LAD was predilated using a 2.5 x 15 mm trek balloon with multiple inflations up to 14 jj. Balloon was removed. Implantation of a drug-eluting stent with a 2.75 x 22 mm Louis drug-eluting stent deployed at 12 jj across the proximal to mid diseased segments. Then, a 3.0 x 8 mm Louis drug-eluting stent was positioned across the most proximal portion of the diseased vessel with its distal edge just within the proximal edge of the initial stent. Thus, this was deployed at 17 jj in an overlapped fashion. The balloon was deflated and advanced into the early portion of the initial stent where postdilatation was performed up to 12 jj. The balloon was removed and custodian blood bank angiography performed. We did attempt to pass a BMW wire across the jailed diagonal branch but were unsuccessful. Therefore, the BMW wire and guide catheter were removed after final angiography was performed. We resumed diagnostic coronary angiography. A 5 Maltese JR4 diagnostic catheter was used to engage the right coronary. Multiple angiographic views of the right coronary system were obtained. Since the patient had persistent symptoms and EKG changes we decided to proceed with PCI of the right coronary lesion. The diagnostic catheter was exchanged over a wire for a 6 Maltese JR4 guide catheter. A BMW versa guidewire was then advanced through this and positioned distally in the RCA. The lesion was predilated using a 2.5 x 12 mm trek balloon up to 14 jj. The balloon was deflated and removed. A 3.5 x 18 mm [place] drug-eluting stent was then advanced and positioned across the lesion where it was deployed at 17 jj. The balloon was removed. A custodian blood bank angiography performed. Guidewire was removed and angiographic evaluation was performed. The guide catheter was then removed over the J-wire. Patient had resolution of symptoms and EKG changes. The radial artery sheath was removed. Hemostasis was obtained using a TR band. Patient remained hemodynamically stable and it was returned to the recovery area. Plan for ICU admission. Coronary angiography and PCI findings: LMT: Large-caliber vessel with mild calcification no significant disease. Bifurcates into LAD and circumflex. LAD: Large caliber and transapical vessel. First major vessel is a septal bran ch followed by a large branching first diagonal. After the ostium of the LAD the proximal LAD has diffuse calcification and diffuse disease. This is long, eccentric, and up to 99% as it transitions into the mid vessel where that has 90% stenosis. The ostium of the first diagonal is involved with this severely diseased segment and has stenosis of 70 to 80%. First diagonal is large and branching with proximal disease of up to 95%. After the severe disease in the mid LAD the distal LAD has tortuosity but no more than mild scattered plaques. The LAD has PARISH II flow beyond the proximal lesion. LCx: This is a medium to large caliber nondominant vessel. Has a high arising atrial branch. First obtuse marginal is medium caliber and branching with a proximal lesion of up to 90%. The vessel appears to be at most 2 mm in diameter. Second obtuse marginal is smaller and the AV groove vessel also becomes smaller before it terminates. RCA: This is a large caliber and dominant vessel. Proximally there is diffuse mild disease then just before the mid segment there is a focal 99% stenosis. PARISH-3 flow post lesion. The mid RCA has mild diffuse disease and the distal vessel has a focal 40% stenosis. It then bifurcates into a large caliber PDA and a large caliber multi branching posterolateral. Each of these vessels have diffuse mild disease. PCI of LAD (overlapped drug-eluting stents proximal through mid) 0% residual stenosis post PCI PARISH-3 flow post PCI No evidence of dissection or perforation post PCI PCI of RCA: Single drug-eluting stent 0% residual stenosis post PCI No evidence of dissection or perforation post PCI PARISH-3 flow post PCI Summary/recommendations: 1. Severe triple-vessel coronary artery disease. Culprit lesion is LAD (PARISH II flow and consistent with ST elevations on EKG). 2. Successful PCI with implantation of overlapped drug-eluting stents in the LAD and single drug-eluting stent to the RCA 3. Dual antiplatelet therapy with aspirin and Brilinta for 12 to 24 months. 4. Guideline directed medical therapy for secondary prevention of coronary disease to include; high intensity statin therapy, beta-nicolette, plus or minus BETTY inhibitor/ARB. 5. Admit to ICU. Obtain echocardiogram. Minimum stay 48 hours. Additional recommendations pending results of studies and evolution of clinical course. Hemodynamics Rest Ao:: 154/81 mmHg, mean 114 mmHg Final Ao: 161/88 mmHg, mean 118 mmHg LV: Not performed Recommendations Recommendations: Medical Therapy and/or Counseling and PCI without planned CABG Radiation Exposure (mGy) 3694 mGy, fluoroscopy time 19.5 minutes Contrast (mls) 270 mL Anesthesia 1 mg IV Versed, 25 mcg IV fentanyl Procedural Complication(s) None Disposition ICU I attest to the content of the Intraoperative Record and any orders documented therein. Any exceptions are noted below. [facility] Card Cath Procedure Codes Cardiac Catheterization Procedure 1: Cardiovascular Cath Procedures: 44640 Coronaries Moderate Sedation Procedure 1: Sedation/Anesthesia: 56551 Mod Sedation by the same physician;Init15 Min Child Age 5 & Up (15 minutes (total time 63 minutes)) Procedure 2: Sedation/Anesthesia: 79597 Mod Sedation by the same physician; Ea [id number] Minutes (Additional time 48 minutes (total time 63 minutes)) Stenting Procedure 1: Cardiovascular Stent Procedures: 20230 Perc transluminal revascularization of acute sub/total occl, aMI (LAD) Procedure 2: Cardiovascular Stent Procedures: 08247 Ea addl branch of a major coronary artery (RCA) PG Care Time/CCT Total # of Minutes Spent Total Time Spent with Patient: Total time spent is greater than 50% in coordination of care (as documented) at patient's floor/unit and/or counseling patient:
--- NOTE | 2022-06-20 15:20 | Post Anesthesia Assessment ---
Date of Service June 19, 2022 Post Sedation Assessment Vital Signs Temp Pulse Pulse Resp BP BP Pulse Ox 06/20/22 10:00 72 20 98 06/20/22 10:00 144/93 H 06/20/22 09:00 87 31 H 98 06/20/22 09:00 161/95 H 06/20/22 08:03 96 H 14 98 06/20/22 08:03 168/107 H 06/20/22 08:00 94 H 24 99 06/20/22 07:00 87 21 96 06/20/22 07:00 160/83 H 06/20/22 01:10 77 24 94 06/20/22 01:00 76 28 H 94 06/20/22 01:00 135/64 06/20/22 00:50 80 23 93 06/20/22 00:46 78 23 93 06/20/22 00:46 123/70 06/20/22 00:40 79 19 96 06/20/22 00:30 82 20 96 06/20/22 00:30 166/70 H 06/20/22 00:20 80 23 94 06/20/22 00:16 74 23 93 06/20/22 00:16 133/76 06/20/22 00:10 84 20 93 06/20/22 00:00 84 20 94 06/20/22 00:00 131/70 06/19/22 23:50 90 19 96 06/19/22 23:46 87 26 H 96 06/19/22 23:46 128/68 06/19/22 23:40 82 22 96 06/19/22 23:30 77 20 97 06/19/22 23:30 140/73 06/19/22 23:20 83 21 95 06/19/22 23:16 167/82 H 06/19/22 23:16 86 23 97 06/19/22 23:10 84 19 96 06/19/22 23:01 111/64 06/19/22 23:01 84 18 96 06/19/22 23:00 79 17 98 06/19/22 23:32 82 06/19/22 22:54 36.6 C 06/19/22 22:50 76 23 97 06/19/22 22:45 144/67 H 06/19/22 22:45 78 20 95 06/19/22 22:45 144/67 H 06/19/22 22:40 78 20 97 06/19/22 22:30 79 22 96 06/19/22 22:30 123/66 06/19/22 22:20 79 23 95 06/19/22 22:15 75 19 96 06/19/22 22:15 132/74 06/19/22 22:10 74 19 97 06/19/22 22:00 81 24 97 06/19/22 22:00 129/92 06/19/22 21:50 78 20 96 06/19/22 21:45 78 27 H 96 06/19/22 21:45 135/84 06/19/22 21:40 77 20 95 06/19/22 21:30 81 21 96 06/19/22 21:30 151/78 H 06/19/22 21:20 83 26 H 97 06/19/22 21:15 185/73 H 06/19/22 21:15 85 26 H 94 06/19/22 21:10 84 18 96 06/19/22 21:03 85 24 96 06/19/22 21:03 194/78 H 06/19/22 21:00 88 24 96 06/19/22 21:00 187/92 H 06/19/22 20:55 86 20 97 06/19/22 19:15 36.7 C 83 16 176/109 H 94 06/19/22 17:13 06/19/22 17:09 06/19/22 17:08 112 H 18 180/109 H 06/19/22 17:00 121 H 25 H 197/123 H 99 06/19/22 16:58 119 H 36 H 178/126 H 99 06/19/22 16:58 06/19/22 16:36 36.7 C 114 H 16 210/119 H 99 O2 Del Method 06/20/22 10:00 06/20/22 10:00 06/20/22 09:00 06/20/22 09:00 06/20/22 08:03 06/20/22 08:03 06/20/22 08:00 06/20/22 07:00 06/20/22 07:00 06/20/22 01:10 06/20/22 01:00 06/20/22 01:00 06/20/22 00:50 06/20/22 00:46 06/20/22 00:46 06/20/22 00:40 06/20/22 00:30 06/20/22 00:30 06/20/22 00:20 06/20/22 00:16 06/20/22 00:16 06/20/22 00:10 06/20/22 00:00 06/20/22 00:00 06/19/22 23:50 06/19/22 23:46 06/19/22 23:46 06/19/22 23:40 06/19/22 23:30 06/19/22 23:30 06/19/22 23:20 06/19/22 23:16 06/19/22 23:16 06/19/22 23:10 06/19/22 23:01 06/19/22 23:01 06/19/22 23:00 06/19/22 23:32 06/19/22 22:54 06/19/22 22:50 06/19/22 22:45 06/19/22 22:45 06/19/22 22:45 06/19/22 22:40 06/19/22 22:30 06/19/22 22:30 06/19/22 22:20 06/19/22 22:15 06/19/22 22:15 06/19/22 22:10 06/19/22 22:00 06/19/22 22:00 06/19/22 21:50 06/19/22 21:45 06/19/22 21:45 06/19/22 21:40 06/19/22 21:30 06/19/22 21:30 06/19/22 21:20 06/19/22 21:15 06/19/22 21:15 06/19/22 21:10 06/19/22 21:03 06/19/22 21:03 06/19/22 21:00 06/19/22 21:00 06/19/22 20:55 06/19/22 19:15 Room Air 06/19/22 17:13 Room Air 06/19/22 17:09 Room Air 06/19/22 17:08 Room Air 06/19/22 17:00 06/19/22 16:58 Room Air 06/19/22 16:58 Room Air 06/19/22 16:36 Room Air Recovery Score Activity: Moves 4 extremities Respiration: Deep Breath/Cough Circulation: +/-20% PreAnes Value Consciousness: Fully Awake Oxygen Saturation: > 92% On Room Air Discharge Sedation Level of Care: Phase I Post Sedation Plan On clinical assessment, the patient appears to have tolerated the sedation without complications. Patient is recovering as anticipated. Patient will continue to be monitored by nursing and may be discharged when sedation discharge criteria are met per below protocol. Upon Completions of procedure up to 15 minutes continue every 5 minute vital signs and the P.A.R. score; then discharge to a Phase I or Fast Track to Phase II per the following guidelines: * Discharge Patient to appropriate Phase II area if PAR is 8 or greater or return to pre- procedure baseline. The post - procedure orders will be as directed. * If PAR score is less than 8 or not return to pre-procedure baseline then patient will follow Phase I monitoring till PAR is reached for Phase II. The Phase I may be done in procedure room or may call to secure a Phase I area. * If naloxone or flumazenil are used for reversal, hold in Phase I for continued monitoring from when last reversal dose was given for a minimum of 60 minutes or longer pending the nurse and/or physician discretion of patient condition before discharge to Phase II. Please call the Sedation Physician to re-evaluate and complete post-note for discharge to Phase II area. Do NOT discharge from procedure sedation or Phase 1 until post- sedation evaluation note is complete by procedure /sedation MD Sedation Discharge Instructions to be given to the patient at discharge to home. [facility] Procedure Codes (Charges) Indication for Procedure Indication for procedure: ST elevation MD Sedation/Anesthesia Procedure 1: Sedation/Anesthesia: 60051 Mod Sedation by the same physician;Init15 Min Child Age 5 & Up (Initial 15 minutes) Total Sedation Time (minutes): 63 Procedure 2: Sedation/Anesthesia: 38361 Mod Sedation by the same physician; Ea [id number] Minutes (Additional 48 minutes) Total Sedation Time (minutes): 63
--- NOTE | 2022-06-20 15:30 | Cardiology Consultation ---
Date of Consultation June 19, 2022 Assessment & Plan (1) ST elevation (STEMI) myocardial infarction: Severe multivessel disease. Successful PCI of the LAD and the RCA. Residual coronary disease is severe but not high risk given relatively small territory of myocardium perfused. She will remain on dual antiplatelet therapy with aspirin and Brilinta for 12 to 24 months. She will be initiated on guideline directed medical therapy for secondary prevention of coronary disease to include; high intensity statin therapy, beta-nicolette, plus or minus BETTY inhibitor/ARB. She should remain in the intensive care unit for 24 hours per standard of care. Additional recommendations pending results of her echocardiogram. (2) CAD (coronary artery disease): Severe multivessel. Successful PCI x2 large important vessels. Guideline directed medical therapy with low-dose aspirin, high intensity statin therapy, beta-nicolette, and BETTY inhibitor/ARB as tolerated. (3) Dyslipidemia: She is high risk. High intensity statin therapy is recommended. We will begin with a atorvastatin 40 mg daily. At home she was on Crestor 10 mg daily but this will need to be increased. A fasting lipid panel should be obtained. We are targeting LDL reduction of greater than or equal to 50% of untreated baseline LDL. (4) Hypertension: Blood pressure is elevated. She will continue losartan and we will add beta- nicolette. We will titrate to achieve target blood pressure and heart rate. Additional medications for blood pressure control will be added as needed. (5) Ischemic cardiomyopathy: We are awaiting echocardiogram. Assuming she has had significant reduction in her EF given the extensive coronary disease and prior history of low normal EF prior to this event then we will need to adjust her medical regimen appropr iately. She does not currently have evidence of volume overload. If she develops CHF then loop diuretic. In addition, assuming reduced EF then we will initiate a heart failure indicated beta-nicolette (metoprolol succinate ER or carvedilol), continue angiotensin receptor nicolette unless EF less than 40% in which case Entresto would be superior. Additional adjuvant medications as tolerated if indicated would include spironolactone and an SGLT2 inhibitor. Plan I will follow closely History of Present Illness Reason for Consultation: ST elevation MA Attending Physician: Gopi Brice History of Present Illness This is a pleasant 76-year-old female who is followed in the cardiology office for palpitations and abnormal EKG. She presented for acute office visit ana lilia fisher to recent onset of severe palpitations, chest tightness, and dyspnea on exertion. In the office her EKG revealed evidence of ST elevations in the anterior leads with diffuse ST depressions. She had exertional chest tightness and shortness of breath which resolved with sitting. She was sent to the emergency department where she continued with chest discomfort. Repeat EKG highly suggestive for acute anterior ST elevation MA. After informed consent was obtained she was taken emergently to the cardiac catheterization suite where she underwent cardiac catheterization. PCI was performed in the LAD for the culprit lesion with additional PCI to severe disease in the RCA. She has significant residual disease in the circumflex obtuse marginal branch which is relatively small and may not accommodate any stents. She also had "jailing" of the first diagonal branch but this had good PAR[place]-3 flow post PCI. Subsequently admitted to the intensive care unit for further work-up and management. Post procedure she denies any ongoing chest pain or shortness of breath. She has had no recent syncope, near syncope, orthopnea, PND, or edema. She was having frequent palpitations and lightheadedness. No recent fevers, chills, cough, sputum production, hemoptysis, abdominal discomfort, melena, hematochezia, dysuria or hematuria. Allergies Allergy/AdvReac Type Severity Reaction Status Date / Time olmesartan [From Benicar] AdvReac Intermediate Dizziness Verified 06/19/22 17:07 enalapril AdvReac Unknown Unknown Verified 06/19/22 17:07 hydrochlorothiazide AdvReac Unknown Unknown Verified 06/19/22 17:07 Home Medications Medication Instructions Recorded Confirmed Type aspirin 81 mg tablet,delayed 81 mg PO DAILY 03/01/22 06/19/22 History release rosuvastatin 10 mg tablet 10 mg PO DAILY #90 tabs 03/01/22 06/19/22 Rx losartan 50 mg tablet 50 mg PO BID 06/19/22 06/19/22 History Patient History Medical History Arthritis Cervical disc disease Chronic rhinitis Dyslipidemia Hypertension Mood change On statin therapy Pain of left calf RLS (restless legs syndrome) Scoliosis Vitamin B12 deficiency Surgical History H/O: hysterectomy (2017) S/P appendectomy S/P dilatation and curettage S/P tubal ligation Family History Father Myocardial infarction Hypertension Mother Diabetes Cardiomegaly Kidney stone Aunt Osteoporosis Thyroid disease Sister Kidney stone Denies family history of Ovarian cancer Prostate cancer Breast cancer Colorectal cancer Social History Smoking Status: Former smoker Age Started Using Tobacco: 20; Age Quit Using Tobacco: 51; Cigarettes Per Day: 7 cigarettes daily; Second Hand Exposure: No; Hx Alcohol Use: No Hx Substance Use: No Preferred Language: Slovak Communication Ability: Effective Visual Impairment: No Limitations Hearing Ability: Normal 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 Post procedure she has no anxiety or evidence of distress. Eyes: Extraocular muscles intact. Sclera are anicteric. ENMT: Oral mucosa is pink, moist, and intact. Neck: No JVD. Respiratory: Clear to auscultation bilaterally. No wheezing, rhonchi, or rales. Cardiovascular: Regular rate and rhythm. Grade 2 out of 6 systolic murmur. S4 gallop. No edema. 2+ distal pulses. Gastrointestinal (Abdomen): Nontender. Normal active bowel sounds. Musculoskeletal: no cyanosis or clubbing, extremities motor strength 5/5 Neurologic: Cognition is intact. Speech is fluent. No focal deficits. Ambulates normally. Psychiatric: A+Ox3, euthymic affect (Anxious precatheterization) Results & Data ([facility]) Vital Signs (Past 12 Hours) Vital Signs Pulse Resp BP Pulse Ox 06/20/22 15:11 186/92 H 06/20/22 15:11 87 19 78 L 06/20/22 15:05 190/91 H 06/20/22 15:05 96 H 27 H 79 L 06/20/22 15:01 95 H 22 06/20/22 15:01 193/128 H 06/20/22 15:00 101 H 29 H 06/20/22 14:00 83 21 98 06/20/22 14:00 154/85 H 06/20/22 13:05 90 22 99 06/20/22 13:05 164/87 H 06/20/22 13:00 89 23 06/20/22 12:00 93 H 20 94 06/20/22 12:00 157/89 H 06/20/22 11:00 83 21 98 06/20/22 11:00 175/109 H 06/20/22 10:00 72 20 98 06/20/22 10:00 144/93 H 06/20/22 09:00 87 31 H 98 06/20/22 09:00 161/95 H 06/20/22 08:03 96 H 14 98 06/20/22 08:03 168/107 H 06/20/22 08:00 94 H 24 99 06/20/22 07:00 87 21 96 06/20/22 07:00 160/83 H PG Care Time/CCT Total # of Minutes Spent Total Time Spent with Patient: Total time spent is greater than 50% in coordination of care (as documented) at patient's floor/unit and/or counseling patient: Critical Care Time: Yes Total Critical Care Time: 60 60 minutes critical care time spent in the examination, evaluation, formulation of a plan of care including implementation, discussion with patient and family, review of records and documentation. This is exclusive of the time spent for her procedure. C[place] [address] Initial Inpt Care Lvl [address] Type New Diagnoses ST elevation (STEMI) myocardial infarction I21.02 Involved coronary artery: LAD coronary artery CAD (coronary artery disease) I25.10 Associated angina: without angina Coronary Disease-Associated Artery/Lesion type: [place] artery [place] vs. transplanted heart: [place] heart Dyslipidemia E78.5 Hypertension I10 Hypertension type: primary hypertension Ischemic cardiomyopathy I25.5 Additional Codes Critical Care Time - Critical Care Time: Yes ([id number]) (1) CAD (coronary artery disease) Associated angina: without angina Coronary Disease-Associated Artery/Lesion type: [place] artery [place] vs. transplanted heart: [place] heart Qualified Code(s): I25.10 - Atherosclerotic heart disease of [place] coronary artery without angina pectoris (2) ST elevation (STEMI) myocardial infarction Involved coronary artery: LAD coronary artery Qualified Code(s): I21.02 - ST elevation (STEMI) myocardial infarction involving left anterior descending coronary artery (3) Hypertension Hypertension type: primary hypertension Qualified Code(s): I10 - Essential (primary) hypertension
--- NOTE | 2022-06-20 15:41 | Cardiology Progress Note ---
Date of Service June 20, 2022 Assessment & Plan (1) Ischemic cardiomyopathy: Plan: Echo demonstrates severely reduced ejection fraction. Very mild volume overload at the moment. We will discontinue IV fluids. Her blood pressure is not yet at target. We will begin metoprolol succinate ER 100 mg daily and Entresto in place of ARB. Also begin an SGLT2 inhibitor and possibly spironolactone prior to discharge. We also recommend a wearable defibrillator vest. Low-dose Lasix at this time. (2) ST elevation (STEMI) myocardial infarction: Plan: Dual antiplatelet therapy with aspirin and Brilinta. Heart rate and blood pressure not at target. Given ischemic cardiomyopathy we will make changes in her regimen as outlined above. She is okay for transfer to stepdown unit. She should remain on monitor. (3) Dyslipidemia: Plan: Patient is high risk. High intensity statin therapy currently on Crestor 20 mg daily. (4) Hypertension: Plan: Blood pressure is above target. We are increasing her beta-nicolette and adding Entresto. Discontinue metoprolol tartrate and her losartan. Additional titration pending response to these medications. Plan I will follow tomorrow. If she tolerates her medications she may be ready for discharge tomorrow afternoon. Admission and Anticipated Discharge Date Admission Date: June 19, 2022 Subjective Patient feeling much better this morning. Mild ecchymosis at the radial artery access site but no significant tenderness. She denies recurrent chest pain or shortness of breath. She asks about discharge. She had no adverse events overnight. She is in sinus rhythm on the monitor. Review of Systems Review of Systems: Negative except as per HPI Physical Exam Constitutional: Awake alert and oriented. Sitting up in the chair. No acute distress. Eyes: Extraocular muscles intact. Sclera are anicteric. ENMT: Oral mucosa is pink and dry. Neck: No JVD appreciated Respiratory: Bibasilar crackles clear with deep inspiration. No wheezing or rhonchi. Cardiovascular: Regular rate and rhythm. S4 gallop. Grade 2 out of 6 systolic murmur. No edema. Gastrointestinal (Abdomen): Nontender. Normal active bowel sounds. Musculoskeletal: no cyanosis or clubbing, extremities motor strength 5/5 (Mild ecchymosis right wrist and hand. Good distal perfusion. No masses.) Neurologic: Cognition is intact. Speech is fluent. No focal deficits. Psychiatric: A+Ox3, euthymic affect Results & Data ([facility]) Vital Signs (Past 12 Hours) Vital Signs Pulse Resp BP Pulse Ox 06/20/22 15:11 186/92 H 06/20/22 15:11 87 19 78 L 06/20/22 15:05 190/91 H 06/20/22 15:05 96 H 27 H 79 L 06/20/22 15:01 95 H 22 06/20/22 15:01 193/128 H 06/20/22 15:00 101 H 29 H 06/20/22 14:00 83 21 98 06/20/22 14:00 154/85 H 06/20/22 13:05 90 22 99 06/20/22 13:05 164/87 H 06/20/22 13:00 89 23 06/20/22 12:00 93 H 20 94 06/20/22 12:00 157/89 H 06/20/22 11:00 83 21 98 06/20/22 11:00 175/109 H 06/20/22 10:00 72 20 98 06/20/22 10:00 144/93 H 06/20/22 09:00 87 31 H 98 06/20/22 09:00 161/95 H 06/20/22 08:03 96 H 14 98 06/20/22 08:03 168/107 H 06/20/22 08:00 94 H 24 99 06/20/22 07:00 87 21 96 06/20/22 07:00 160/83 H PG Care Time/CCT Total # of Minutes Spent Total Time Spent with Patient: Total time spent is greater than 50% in coordination of care (as documented) at patient's floor/unit and/or counseling patient: Coding Level of Care Code 37799 Subseq Hosp Care Lvl 3 Diagnoses Ischemic cardiomyopathy I25.5 ST elevation (STEMI) myocardial infarction I21.02 Involved coronary artery: LAD coronary artery Dyslipidemia E78.5 Hypertension I10 Hypertension type: primary hypertension (1) ST elevation (STEMI) myocardial infarction Involved coronary artery: LAD coronary artery Qualified Code(s): I21.02 - ST elevation (STEMI) myocardial infarction involving left anterior descending coronary artery (2) Hypertension Hypertension type: primary hypertension Qualified Code(s): I10 - Essential (primary) hypertension
--- NOTE | 2022-06-20 17:24 | Electrocardiogram Report ---
Test Reason : Blood Pressure : / mmHG Vent. Rate : 103 BPM Atrial Rate : 103 BPM P-R Int : 192 ms QRS Dur : 086 ms QT Int : 304 ms P-R-T Axes : 082 -01 199 degrees QTc Int : 398 ms Sinus tachycardia with Premature atrial complexes Possible Left atrial enlargement Anterior infarct , age undetermined Marked ST abnormality, possible inferolateral subendocardial injury Abnormal ECG No previous ECGs available Confirmed by Jonny Cox ([id number]) on 06/20/2022 5:23:59 PM Referred By: REFERRED SELF Confirmed By:Last Cox
--- NOTE | 2022-06-20 17:28 | Electrocardiogram Report ---
Test Reason : Blood Pressure : / mmHG Vent. Rate : 099 BPM Atrial Rate : 099 BPM P-R Int : 182 ms QRS Dur : 072 ms QT Int : 296 ms P-R-T Axes : 057 -08 245 degrees QTc Int : 379 ms Poor data quality, interpretation may be adversely affected Sinus rhythm with Premature atrial complexes Left ventricular hypertrophy with repolarization abnormality Nonspecific ST abnormality Abnormal ECG Confirmed by Jonny Cox ([id number]) on 06/20/2022 5:27:55 PM Referred By: REFERRED SELF Confirmed By:Last Cox
--- NOTE | 2022-06-20 17:48 | Electrocardiogram Report ---
Test Reason : Blood Pressure : / mmHG Vent. Rate : 088 BPM Atrial Rate : 088 BPM P-R Int : 164 ms QRS Dur : 078 ms QT Int : 402 ms P-R-T Axes : 038 -04 139 degrees QTc Int : 486 ms Sinus rhythm with Premature supraventricular complexes Left ventricular hypertrophy with repolarization abnormality Anteroseptal infarct (cited on or before 19-JUN-2022) ST and T wave abnormality concerening for ischemia Abnormal ECG When compared with ECG of 19-JUN-2022 18:49, (unconfirmed) Serial changes of evolving Anteroseptal infarct Present Confirmed by Jonny Cox ([id number]) on 06/20/2022 5:48:39 PM Referred By: REFERRED SELF Confirmed By:Last Cox
--- NOTE | 2022-06-20 22:09 | Hospitalist Progress Note ---
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 She was noted have acute ECG changes and was brought to the EMD and taken directly to the cardiac cath suite. She received PCI and JUAN to the LAD and RCA. She is to the ICU without pressors or oxygen requirement. Neuro - Anxiety, pain CAM ICU - anxiety- prn ativan - acute pain from cath site- tylenol/morphine prn Cardiac - S/P Stents to cardiac arteries- LAD-2 RCA-2, Acute OK, CAD, HTN, HLD - s/p above without acute complications noted at this time, TR band is in place - DAPT therapy as recommended by cardiology- asa, and Brilinta - Continue to trend HScTNI - ECG post procedure reviewed - Addition of BB as hemodynamics tolerate - Continue ARB - lipid panel in the morning- statin per cardiology- patient feels that she may be having some myalgias/musclee pains on the rosuvastatin - HGB A1c in am - ECHO showed acute systolic cardiomyopathy: EF 30%. -Medications changed to entresto, and increased BB. May add spirinolactone. Respiratory - NO acute needs - previous smoker- quit ~25 years ago- on room air GI - No acute needs advance diet as tolerated RENAL/LYTES - NO acute needs - Electrolyte protocol - No acute needs ENDO - Elevated serum glucose without diagnosis of DM - HGBA1C in the morning - therapy as warranted - ICU protocol goal < 180 mg/dl HEME - No acute needs ID - No acute needs LINES/IV ACCESS - PIV Continue use of these lines DVT PROPHYLAXIS - SCDS, ASA, Brilinta, ambulation DISPO - downgrade from ICU. Admission and Anticipated Discharge Date Admission Date: June 19, 2022 Subjective Patient reports doing well. She is asking to have her blood pressure checked manually as the automatic cuffs are too tight. Review of Systems Review of Systems: All systems reviewed & are unremarkable except as noted in HPI & below Physical Exam Physical Exam: The patient appeared well nourished and normally developed. Vital signs as documented. Head exam is normocephalic atraumatic Neck is without JVD, thyromegaly, or carotid bruits. Lungs are clear to auscultation, no focal loss of breath sounds Cardiac exam, Rhythm is regular.. No murmurs, rubs or gallops. Abdominal exam reveals normal bowel sounds, soft non tender, no masses Extremities T band in place in the right wrist Neurologic exam is alert and oriented, no focal loss of strength or sensation Skin is without bruises or rashes Psychologically is without concerns for anxiety or depression.. Results & Data Results & Data ([facility]) Vital Signs (Past 12 Hours) Vital Signs Temp Pulse Pulse Resp BP BP Pulse Ox 06/20/22 21:17 36.7 C 99 H 26 H 142/85 H 92 06/20/22 16:00 100 H 18 95 06/20/22 16:00 185/85 H 06/20/22 15:11 186/92 H 06/20/22 15:11 87 19 78 L 06/20/22 15:05 190/91 H 06/20/22 15:05 96 H 27 H 79 L 06/20/22 15:01 95 H 22 06/20/22 15:01 193/128 H 06/20/22 15:00 101 H 29 H 06/20/22 14:00 83 21 98 06/20/22 14:00 154/85 H 06/20/22 13:05 90 22 99 06/20/22 13:05 164/87 H 06/20/22 13:00 89 23 06/20/22 12:00 93 H 20 94 06/20/22 12:00 157/89 H 06/20/22 11:00 83 21 98 06/20/22 11:00 175/109 H O2 Del Method 06/20/22 21:17 Room Air 06/20/22 16:00 Room Air 06/20/22 16:00 06/20/22 15:11 06/20/22 15:11 06/20/22 15:05 06/20/22 15:05 06/20/22 15:01 06/20/22 15:01 06/20/22 15:00 06/20/22 14:00 06/20/22 14:00 06/20/22 13:05 06/20/22 13:05 06/20/22 13:00 06/20/22 12:00 06/20/22 12:00 06/20/22 11:00 06/20/22 11:00 PG Care Time/CCT Total # of Minutes Spent Total Time Spent with Patient: Total time spent is greater than 50% in coordination of care (as documented) at patient's floor/unit and/or counseling patient: Coding Level of Care Code 22188 Subseq Hosp Care Lvl 2 Diagnoses Acute OK I21.9 CAD (coronary artery disease) I25.10 Associated angina: without angina Coronary Disease-Associated Artery/Lesion type: [place] artery [place] vs. transplanted heart: [place] heart S/P coronary artery stent placement Z95.5 Hyperglycemia R73.9 Dyslipidemia E78.5 Hypertension I10 Hypertension type: primary hypertension (1) CAD (coronary artery disease) Associated angina: without angina Coronary Disease-Associated Artery/Lesion type: [place] artery [place] vs. transplanted heart: [place] heart Qualified Code(s): I25.10 - Atherosclerotic heart disease of [place] coronary artery without angina pectoris (2) Hypertension Hypertension type: primary hypertension Qualified Code(s): I10 - Essential (primary) hypertension
[2022-06-21 05:33] LABS: Basophils # (auto) 0.04 K/uL (0-0.2); Basophils % (auto) 0.4 %; Eosinophils # (auto) 0.23 K/uL (0-0.50); Eosinophils % (auto) 2.5 %; Hematocrit (blood only) 35.5 % (34.1-44.9); Hemoglobin 11.8 g/dl (12.0-16.0); Immature Granulocytes # (auto) 0.03 K/uL (0.00-0.02); Immature Granulocytes % (auto) 0.3 %; Lymphocytes # (auto) 2.55 K/uL (1.2-3.4); Lymphocytes % (auto) 27.5 %; Mean Corpuscular Hemoglobin 28.2 pg (25.0-34.0); Mean Corpuscular Hgb Conc 33.2 g/dL (32.0-36.0); Mean Corpuscular Volume 84.9 fL (80.0-100.0); Mean Platelet Volume 10.4 fL (9.4-12.3); Monocytes # (auto) 0.87 K/uL (0.24-0.82); Monocytes % (auto) 9.4 %; Neutrophils # (auto) 5.56 K/uL (1.4-6.5); Neutrophils % (auto) 59.9 %; Platelet Count 246 K/uL (130-400); RDW Coefficient of Variation 13.6 % (11.5-14.5); RDW Standard Deviation 42.5 fL (36.4-46.3); Red Blood Count 4.18 M/uL (3.93-5.22); White Blood Count 9.28 K/ul (4.8-10.8)
[2022-06-21 06:03] LABS: BUN Creatinine Ratio 42.9 (10-20); Calcium 8.9 mg/dl (8.5-10.1); Creatinine Clr Calc Pharmacy 109.3 ml/min; Est GFR (African American) 111.2 ml/min; Magnesium 2.1 mg/dl (1.7-2.4); Phosphorus 3.3 mg/dl (2.5-4.9); Potassium 3.7 mmol/L (3.5-5.1)
[2022-06-21] MEDS: ASPIRIN 81 MG ECTAB PO SCH (07:58)
[2022-06-21] MEDS: FAMOTIDINE 20 MG TAB PO SCH (08:03)
[2022-06-21] MEDS ORDERED: METOPROLOL SUCC 50MG EXT REL TAB PO SCH (09:00)
[2022-06-21] MEDS ORDERED: VALSARTAN/SACUBITRIL 26/24MG TAB PO SCH (09:00)
[2022-06-21] MEDS: ROSUVASTATIN CALCIUM 20 MG TAB PO SCH (09:00)
[2022-06-21] MEDS: TICAGRELOR 90 MG TAB PO SCH (09:57)
[2022-06-21] MEDS ORDERED: SPIRONOLACTONE 12.5 MG TAB PO SCH (12:00)
--- NOTE | 2022-06-21 15:08 | Discharge Summary ---
Date of Service June 21, 2022 Admission HPI Per Admitting Provider Patient has been stuttering cardiac symptoms for some time as an outpatient presented to an outpatient cardiology office around 4 PM with complaints of palpitations and chest discomfort. EKG in the office was concerning for acute coronary syndrome. She was sent immediately to the emergency department patient presents as a heart alert with inferior lateral ST elevation reciprocal depression. Patient was at her cardiology office this morning with exertional chest pain and abnormal EKG during the office visit. She was subsequently referred to the emergency department where EKG confirms the concern for acute coronary syndrome and heart alert was called that the patient taken emergently to the [facility]. Where she had 2 LAD stents placed in RCA stent placed and likely will need to come back for additional stenting of her coronary artery disease. Patient has risk factors of tobacco abuse hypertension and dyslipidemia, hyperglycemia without a formal diagnosis of diabetes Patient was seen postprocedure in the ICU she is in stable condition she has a T band in her right wrist which is intact with good sensation distally she is not with any additional chest discomfort shortness of breath or palpitations at this time Principal Diagnosis STEMI Discharge Exam The patient appeared well nourished and normally developed. Vital signs as documented. Head exam is normocephalic atraumatic Neck is without JVD, thyromegaly, or carotid bruits. Lungs are clear to auscultation, no focal loss of breath sounds Cardiac exam, Rhythm is regular.. No murmurs, rubs or gallops. Abdominal exam reveals normal bowel sounds, soft non tender, no masses Extremitiesno edema. Neurologic exam is alert and oriented, no focal loss of strength or sensation Skin is without bruises or rashes Psychologically is without concerns for anxiety or depression.. Discharge Data Allergies Allergy/AdvReac Type Severity Reaction Status Date / Time olmesartan [From Benicar] AdvReac Intermediate Dizziness Verified 06/19/22 17:07 enalapril AdvReac Unknown Unknown Verified 06/19/22 17:07 hydrochlorothiazide AdvReac Unknown Unknown Verified 06/19/22 17:07 Consultations 06/19/22 17:19 ED Decision to Admit Stat 06/19/22 18:35 Consult Internal Medicine Routine 06/19/22 18:39 Consult Manager Government Routine 06/19/22 18:52 Consult Cardiology Routine Consult Manager Government Routine Procedures Performed Operation Date: 06/19/22 17:00 Actual Procedures p Drug Eluting Stent SGl Vessel - Néstor Ward MD, PhD s Drug Eluting Stent each ADDTL Vessel - Néstor Ward MD, PhD s Cath, Coronaries ONLY (no LV) - Néstor Ward MD, PhD p Cardiac Heart Alert - Néstor Ward MD, PhD Ordered Studies 06/19/22 16:59 CL Cath Imgs for PACS use only Stat Hospital Course (1) ST elevation (STEMI) myocardial infarction: Acute coronary syndrome with ST elevation seen in avr and V1 with st depression I,II,III avl and avf pt with aspirin loading heparin, nicardipine for hypertensive urgency on presentation Patient had 2 stents placed in LAD 1 in the RCA she is in the ICU for recovery. She will be on high intensity statin by increasing her rosuvastatin to 20 should be on Brilinta and aspirin. Her blood pressure be controlled with continuation of her ARB and likely addition of beta-nicolette per cardiology's discretion. EF is 25 to 30%. Plan to discharge on Entresto and Brillinta. Patient will also be discharged with a life vest. Will consider adding spirinolactone at followup Cardiology appointment (2) Hyperglycemia: Plan: this is by the record glucose is reasonable and A1c 5.9 will not use insulin ss unless has recurrent high readings (3) Dyslipidemia: Plan: lipids in the past have been reasonable while on rosuvastatin, dose will be increased to high intensity (4) Hypertension: Plan: pt on losartan but has a arb allergy to omlesartan, apparently tolerating losartan well (5) RLS (restless legs syndrome): Plan: Patient currently on no treatment for this Total Time Total Time Spent Total Time Spent (In Minutes): 60 Discharge Plan Discharge Items Patient Disposition: Home - Self-Care Reason For Visit: STEMI WITH STENTS Discharge Diagnosis: STEMI ischemic cardiomyopathy Activity: Per Instructions section Non-emergency contact: Adjuster Leader Call non-emergency contact if: you have any medication questions, your symptoms worsen, your pain is not controlled, you have a fever, your wound has increased redness and your wound has increased drainage Follow-up/Referrals: Néstor Ward MD, PhD [Physician] - 06/27/22 11:45 am (Please arrive 15 minutes prior to appointment time.) Neeru Schaffer MD [Primary Care Provider] - Diet: Heart Healthy Add Attending Provider Instructions: Home Care: * Take your medications exactly as directed. Don't skip doses. * Remember that recovery after a heart attack takes time. Plan to rest for at lease 4-8 weeks while you recover. Then return to normal activity when your doctor says it's okay. * Ask your doctor about joining a heart rehabilitation program. * Tell your doctor if you are feeling depressed. Feelings of sadness are common after a heart attack, but it is important that you speak to someone if you are feeling overwhelmed by these feelings. * If you are having chest pain, call 911 for an ambulance. Do NOT drive yourself to the hospital. * Ask your family members to learn CPR. * Learn to take your own blood pressure and pulse. Keep a record of your results. Ask your doctor when you should seek emergency medical attention. He or she will tell you which blood pressure reading is dangerous. Lifestyle Changes: * Maintain a healthy weight. Get help to lose any extra pounds. * Cut back on salt. * Limit canned, dried, packaged, and fast foods. * Don't add salt to your food. * Season foods with herbs instead of salt when you cook. * Break the smoking habit. Enroll in a stop-smoking program to improve your chances of success. * Limit fatty foods. * Ask your doctor about having your lipid levels checked regularly. * Build up your activity according to your doctor's recommendation. * Ask your doctor when it's okay to resume sexual activity. * Tell your doctor about any erectile dysfunction (ED) medication you are taking. Some ED medications are not safe if you take certain heart medications. * Try to manage stress. Follow Up: It is important for you to keep your follow up appointments with your medical provider. Pending Studies at Discharge: No Stand-Alone Forms: My [facility] TLM Com, Smoking Cessation Medications and DC Order Prescriptions: New Brilinta 90 mg Tablet 90 mg PO BID Qty: 60 0RF Entresto 24-26 mg Tablet 1 tab PO BID Qty: 60 0RF rosuvastatin [Crestor] 20 mg Tablet 20 mg PO DAILY Qty: 30 0RF metoprolol succinate 50 mg Tablet Extended Release 24 Hr 100 mg PO QAM Qty: 30 0RF famotidine 20 mg Tablet 20 mg PO BID Qty: 60 0RF Continued aspirin 81 mg tablet,delayed release (DR/EC) 81 mg PO DAILY Qty: 30 0RF Discontinued rosuvastatin 10 mg tablet 10 mg PO DAILY Qty: 90 3RF losartan 50 mg tablet 50 mg PO BID Discharge Orders: Discharge Order (Routine); Ordered 06/21/22 Ordered By: Gopi Brice Admission Data Admit Date/Time: 06/19/22 18:19 Attending Provider: Gopi Brice Admit Provider: Bj Denise Primary Care Provider: Neeru Schaffer V. Other Providers: Bj Denise ; Jon Wynn ; Cristobal Schultz ; Horacio Rosales ; Blu Bell ; Douglas Aldana ; Shawn Bae ; Jessica De Souza ; Harsha Beauchamp ; Jing Serrano ; Néstor Ward Other Interventions: Discharge Summary Assessment (RN) Last Done: 06/21/22 16:05 Coding Level of Care Code D/C DAY MANAGEMENT >[address] elevation (STEMI) myocardial infarction I21.02 Involved coronary artery: LAD coronary artery
--- NOTE | 2022-06-21 16:21 | Cardiology Progress Note ---
Date of Service June 21, 2022 Assessment & Plan (1) Ischemic cardiomyopathy: Plan: No evidence of volume overload at this time. EF is 25 to 30%. Awaiting wearable defibrillator fitment. She has no evidence of volume overload at this time. She will remain on Toprol-XL 100 mg daily and Entresto 26/24 mg p.o. twice daily. As an outpatient we will attempt to add adjuvant therapy such as SGLT2 inhibitor plus or minus spironolactone. Currently has not required any loop diuretics. We will reassess her EF by echocardiogram after 3 months optimize therapy. (2) ST elevation (STEMI) myocardial infarction: Plan: Status post PCI of the LAD and PCI of the RCA. She will remain on dual antiplatelet therapy using aspirin 81 mg daily and ticagrelor 90 mg p.o. twice daily. Her blood pressure and heart rate are near target. Continue Toprol-XL and Entresto. We have increased her Crestor to 20 mg daily. Strongly encourage cardiac rehab. Post catheterization instructions will be provided at discharge. (3) Dyslipidemia: Plan: High risk. High intensity statin therapy with target LDL reduction of greater than or equal to 50% of untreated baseline LDL. Crestor has been increased to 20 mg daily and will be further titrated as needed to achieve target. (4) Hypertension: Plan: Blood pressure is at or slightly above target. The Entresto is a new medication and we will certainly keep her blood pressure on the lower side. Her blood pressure will be reevaluated as an outpatient on the Toprol-XL and Entresto. We can at that point add spironolactone if her blood pressure will tolerate. Plan Appropriate for discharge today. Awaiting wearable defibrillator. Outpatient follow-up with me next week has already been scheduled. Admission and Anticipated Discharge Date Admission Date: June 19, 2022 Subjective Patient did well overnight. Is asking about discharge. She denies any recurrent chest pain, shortness of breath, or palpitations. We discussed at length with her and her family regarding her severely reduced ejection fraction and the associated risk of sudden cardiac from arrhythmia. We also discussed recommendation for a wearable defibrillator. After explaining that further to her she was amenable to wearing the defibrillator. She also had a number of questions regarding what activities she can undertake safely. I discussed with her the benefits of cardiac rehab and encouraged her to not only participating cardiac rehab but continue to exercise after she has completed cardiac rehab. Her family had concerns regarding her anxiety and I suggested that further discussion with her primary care provider and a psychologist may be helpful to reduce her stress levels. I informed her that she would have short- term limitations on her physical activity to allow for recovery from her procedure and myocardial infarction. Those instructions will be provided to her at discharge along with an updated medication list. She is somewhat reluctant to take medications but I assured her that the cardiac medications I have recommended are the minimum required to provide maximum outcomes. She would also like to see me in follow-up which has already been arranged. I called the wearable defibrillator accounting representative, ordered the device, and we are currently awaiting authorization so that he may fit her device prior to discharge. She voices no other complaints or concerns at this time. She is anxious for discharge. Review of Systems Review of Systems: Negative except as per HPI Physical Exam Constitutional: WD/WN, vitals as above Neck: No JVD Respiratory: Clear to auscultation bilaterally. No wheezing, rhonchi, or rales. Cardiovascular: Regular rate and rhythm. S4 gallop. Soft systolic murmur. Musculoskeletal: Ecchymosis at the right radial artery access site. Good distal perfusion. No mass. Neurologic: Cognition is intact. Speech is fluent. No focal deficits. Ambulates normally. Psychiatric: A+Ox3, euthymic affect Results & Data ([facility]) Vital Signs (Past 12 Hours) Vital Signs Temp Pulse Resp BP Pulse Ox 06/21/22 16:05 36.7 C 87 18 142/78 H 98 PG Care Time/CCT Total # of Minutes Spent Total Time Spent with Patient: Total time spent is greater than 50% in coordination of care (as documented) at patient's floor/unit and/or counseling patient: Prolonged Care Time Prolonged Care Time: Yes Total Prolonged Care Time: 45 I spent 45 minutes in reviewing the patient's records, discussion (with family, patient, nursing, and device rep), formulation and implementation of a plan of care, and all associated documentation. [place] [address] Subseq Hosp Care Lvl 3 Patient Type Established Diagnoses Ischemic cardiomyopathy I25.5 ST elevation (STEMI) myocardial infarction I21.02 Involved coronary artery: LAD coronary artery Dyslipidemia E78.5 Hypertension I10 Hypertension type: primary hypertension Additional Codes Prolonged Care Time - Prolonged Care Time: Yes ([id number]) (1) ST elevation (STEMI) myocardial infarction Involved coronary artery: LAD coronary artery Qualified Code(s): I21.02 - ST elevation (STEMI) myocardial infarction involving left anterior descending coronary artery (2) Hypertension Hypertension type: primary hypertension Qualified Code(s): I10 - Essential (primary) hypertension
== END 2022-06-21 19:21 | disposition home or self-care (01) | DRG 247 ==
LOC: ED 16:33 → CC 17:13 → 1E 17:13 → SUATTDRO 18:19 → 1E 18:19 → 2E 06-21 06:00
PROC: CLB.CCO (2022-06-19 17:00)